=== PATIENT | male | born 1990 | race Caucasian/White ===

== ENCOUNTER 2020-01-27 14:18 | Emergency (ER) | payer OTHER, BC, SELFPAY ==
--- NOTE | ~2020-01-27 | XR_ITS ---
EXAMINATION: XR forearm RT 2V DATE: 01/27/2020 15:20 INDICATION: Right forearm injury and pain. TECHNIQUE: 2 views of right forearm were obtained. COMPARISON: None. FINDINGS: Bone alignment is normal. No fracture. Joint spaces are well maintained. There is an enthes ophyte at lateral humeral epicondyle. There is no elbow joint effusion. IMPRESSION: 1. No fracture. Reviewed, dictated and finalized at location A. IMPRESSION: 1. No fracture.
[2020-01-27 14:21] VITALS: BP 153/103; PULSE 108; RESP 18; TEMP 36.8; O2SAT 100
--- NOTE | 2020-01-27 14:32 | PC.NURSE ---
Patient states that he is unable to move 4th and 5th fingers as result from the scratch on his forearm. On exam, patient forcefully holding fingers out and stiff in a Spok like formation. Once told to relax by this RN patient states I'm just real tense right now. Pt is able to move all extremities once relaxed .
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
[2020-01-27 15:40] VITALS: BP 155/82; PULSE 88; RESP 19; O2SAT 100
== END 2020-01-27 15:41 | disposition home or self-care (01) ==
PROVIDERS: Emergency Provider Emergency Medicine; PCP Physician Assistant
DX: S50.11XA Contusion of right forearm, initial encounter (principal); E66.9 Obesity, unspecified; Z68.42 Body mass index [BMI] 45.0-49.9, adult; W20.8XXA Other cause of strike by thrown, projected or falling object, initial encounter
CPT/HCPCS: 73090; 99283

== ENCOUNTER 2020-12-31 07:40 | Outpatient (CLI) | payer BC, SELFPAY | END 2020-12-31 07:41 | disposition home or self-care (01) | LOC: ANHAUDIO 07:42 | PROVIDERS: PCP Physician Assistant; Visit Provider Nurse Practitioner Family | DX: R42 Dizziness and giddiness (principal); H90.3 Sensorineural hearing loss, bilateral | CPT/HCPCS: 92537; 92540; 92546; 92557; 92567 ==

== ENCOUNTER → 2021-04-15 14:05 | Outpatient (CLI) | payer BC, SELFPAY ==
--- NOTE | ~2021-04-15 | MR_ITS ---
EXAMINATION: MR cervical spine wo con EXAM DATE: 04/15/2021 15:27 INDICATION: Neck pain, cervical radiculopathy. TECHNIQUE: Multi-sequential, multiplanar MR images of the cervical spine were obtained without contra st. Axial T2, axial T2 MERGE sequence. Sagittal T1, T2, T2 fat saturation images also obtained. Th ere is no prior study for comparison. FINDINGS: The vertebral bodies are aligned in the AP dimension. Vertebral body and disc heights are well-maintained. The spinal cord signal intensity and intrinsic morphology is normal. Cervicomedullar y junction is normal in appearance. There are no suspicious marrow signal abnormalities. Paraspinal s oft tissue is unremarkable. Level by level evaluation: C2-C3: Disc does not extend beyond the endplate margin. Uncovertebral joint arthropathy: Mild. Facet joint arthropathy: Mild. Neural foraminal stenosis: No stenosis. Central canal stenosis: No stenosis. C3-C4: Disc does not extend beyond the endplate margin. Uncovertebral joint arthropathy: Mild to moderate right, mild left. Facet joint arthropathy: Mild. Neural foraminal stenosis: Mild to moderate right. Central canal stenosis: No stenosis. C4-C5: Disc does not extend beyond the endplate margin. Uncovertebral joint arthropathy: Mild bilateral. Facet joint arthropathy: Mild bilateral. Neural foraminal stenosis: Mild bilateral. Central canal stenosis: No stenosis. C5-C6: Disc does not extend beyond the endplate margin. Uncovertebral joint arthropathy: Mild bilateral. Facet joint arthropathy: Mild bilateral. Neural foraminal stenosis: Mild left. Central canal stenosis: No stenosis. C6-C7: Disc does not extend beyond the endplate margin. Uncovertebral joint arthropathy: Mild bilateral. Facet joint arthropathy: None. Neural foraminal stenosis: No stenosis. Central canal stenosis: No stenosis. C7-T1: Disc does not extend beyond the endplate margin. Uncovertebral joint arthropathy: Mild bilateral. Facet joint arthropathy: None. Neural foraminal stenosis: No stenosis. Central canal stenosis: No stenosis. IMPRESSION: Mild cervical spondylosis. Reviewed, dictated and finalized at location B. IMPRESSION: Mild cervical spondylosis.
== END ==
PROVIDERS: PCP Physician Assistant; Visit Provider Anesthesiology
DX: M47.22 Other spondylosis with radiculopathy, cervical region (principal)
CPT/HCPCS: 72141

== ENCOUNTER → 2021-04-15 14:07 | Outpatient (CLI) | payer BC, SELFPAY ==
--- NOTE | ~2021-04-15 | MR_ITS ---
EXAMINATION: MR brain/brain stem wo/w con EXAM DATE: 04/15/2021 15:31 INDICATION: Dizziness and giddiness. Vertigo. TECHNIQUE: Magnetic resonance imaging (MRI) of the brain/brain stem obtained without contrast. Sagit hai T1, axial diffusion, gradient echo (T2*), T1, T2, FLAIR sequences obtained. Patient was then inj ected with 20 cc intravenous Multihance contrast. Axial and coronal postcontrast T1 weighted sequence s obtained. Comparison is made to prior examination from 01/09/2012. FINDINGS: There are no areas of restricted diffusion to suggest acute infarction. There is no acute hemorrhage seen on the T2*, a hemosiderin sensitive sequence. No intraparenchymal brain mass. The ve ntricles are normal in size. There are no extra-axial collections. Flow voids are seen in the cereb ral arteries on the T2-weighted sequences consistent with their expected patency. The orbits are unr emarkable. Soft tissue is unremarkable. Small mucous retention cyst in each maxillary sinus. There are no areas of abnormal enhancement on the post contrast images. IMPRESSION: 1. Unremarkable brain MRI examination. Reviewed, dictated and finalized at location B.
[2021-04-15 14:41] LABS: Estimated Glomerular Filt Rate > 60
== END ==
PROVIDERS: PCP Physician Assistant; Visit Provider Physician Assistant
DX: R42 Dizziness and giddiness (principal)
CPT/HCPCS: 70553; A9577

== ENCOUNTER → 2021-09-01 11:46 | Outpatient (CLI) | payer OTHER, SELFPAY ==
--- NOTE | ~2021-09-01 | XR_ITS ---
XR finger 2nd RT min 2V DATE: 09/01/2021 12:24 INDICATION: Second finger injury TECHNIQUE: 4 views COMPARISON: None FINDINGS: No fracture or dislocation, periosteal reaction or bone destruction, radiopaque soft tissue foreign body or subcutaneous emphysema. IMPRESSION: Negative Reviewed, dictated and finalized at location A. DINE OPERATOR IMPRESSION: Negative
--- NOTE | ~2021-09-01 | XR_ITS ---
XR chest 2V DATE: 09/01/2021 12:24 INDICATION: Persistent cough. TECHNIQUE: 2 views COMPARISON: 12/18/2018 2 view chest FINDINGS: Normal heart size. No hilar or mediastinal enlargement. No pulmonary infiltrate or consolid ation, pleural effusion or pulmonary vascular congestion or pneumothorax. Included skeletal structures are unremarkable. IMPRESSION: No active cardiopulmonary disease Reviewed, dictated and finalized at location A. LY CRIB ATTENDANT
== END ==
PROVIDERS: Visit Provider Physician Assistant
DX: R05.3 Chronic cough (principal); S69.91XA Unspecified injury of right wrist, hand and finger(s), initial encounter; X58.XXXA Exposure to other specified factors, initial encounter
CPT/HCPCS: 71046; 73140

== ENCOUNTER → 2021-11-15 17:17 | Outpatient (CLI) | payer OTHER, SELFPAY ==
--- NOTE | ~2021-11-15 | MR_ITS ---
EXAMINATION: MR lumbar spine wo con DATE: 11/15/2021 17:46 INDICATION: Low back pain. TECHNIQUE: Magnetic resonance imaging (MRI) of the lumbar spine was performed without intravenous con trast. Sequences included sagittal T2-weighted FSE, sagittal T2-weighted FS FSE, sagittal T1-weighted FSE, and axial T2-weighted FSE. COMPARISON: None FINDINGS: Bone alignment is normal. There is mild chronic anterior wedging of T11 and T12 vertebral b odies. There is mildly decreased disc height at L4-L5. Epidural lipomatosis is noted. The distal spin al cord signal intensity is normal. The conus medullaris is at L1. The following disc levels are spec ifically discussed: L1-L2: The disc does not extend beyond the endplate margin. There is mild bilateral facet joint osteo arthritis. There is no neural foraminal stenosis. There is no central canal stenosis. L2-L3: The disc is mildly bulging. There is mild bilateral facet joint osteoarthritis. There is mild bilateral neural foraminal stenosis. There is no central canal stenosis. L3-L4: The disc is mildly bulging. There is mild bilateral facet joint osteoarthritis. There is mild bilateral neural foraminal stenosis. There is no central canal stenosis. L4-L5: The disc is bulging with superimposed left central extrusion with mass effect on left L5 nerve root in left lateral recess. There is moderate and severe left facet joint osteoarthritis. There is mild right and moderate left neural foraminal stenosis. There is moderate central canal stenosis. The re is severe stenosis of left lateral recess. L5-S1: There is a central protrusion. There is moderate bilateral facet joint osteoarthritis. There i s no neural foraminal stenosis. There is mild central canal stenosis. IMPRESSION: 1. Moderate lumbar spondylosis. Of note, an extrusion at L4-L5 exerts mass effect on left L5 nerve ro ot. Reviewed, dictated and finalized at location A. IMPRESSION: 1. Moderate lumbar spondylosis. Of note, an extrusion at L4-L5 exerts mass effe ct on left L5 nerve root.
== END ==
PROVIDERS: PCP Physician Assistant; Visit Provider Anesthesiology
DX: M47.26 Other spondylosis with radiculopathy, lumbar region (principal)
CPT/HCPCS: 72148

== ENCOUNTER → 2022-07-01 09:09 | Outpatient (CLI) | payer OTHER, SELFPAY ==
--- NOTE | ~2022-07-01 | MR_ITS ---
MRI of the cervical spine Clinical History: Cervical radiculopathy Technique: Axial T2-weighted and gradient images, and sagittal T1-weighted, T2-weighted, and T2 fat s at images were acquired. Findings: There is no fracture or subluxation of the cervical spine. Vertebral bodies maintain normal height and alignment. No significant bone marrow signal dropout is identified. At C2-C3, there is no disc bulge or herniation. No spinal canal stenosis, cord compression, or defini te neural foraminal narrowing. At C3-C4, there is uncovertebral hypertrophy, resulting in right neural foraminal narrowing. Left jennie ral foramen preserved. No spinal canal stenosis or cord compression. At C4-C5, there is minimal uncovertebral degenerative change. No spinal canal stenosis, cord compress ion, or definite neural foraminal narrowing. At C5-C6, there is minimal uncovertebral degenerative change. There is probable minimal left neural f oraminal narrowing. No spinal canal stenosis or cord compression. At C6-C7, there is no disc bulge or herniation. No spinal canal stenosis, cord compression, or neural foraminal narrowing. No prevertebral soft tissue swelling present. Paravertebral soft tissues are unremarkable. Impression: Minimal degenerative spondylosis, as detailed above. There is probable mild neural foraminal narrowin g at the C3-C4 and C5-C6 levels. Reviewed, dictated and finalized at [facility]. HING AIDE Impression: Minimal degenerative spondylosis, as detailed above. There is probable mild jennie ral foraminal narrowing at the C3-C4 and C5-C6 levels.
--- NOTE | ~2022-07-01 | MR_ITS ---
MRI of the thoracic spine Clinical History: Back pain, radiculopathy Technique: Axial T2-weighted images, and sagittal T1-weighted, T2-weighted, and T2 fat sat images wer e acquired. Findings: There is no fracture or subluxation of the thoracic spine. Vertebral bodies maintain normal height and alignment. No bone marrow signal abnormality identified. At T5-T6, there is a focal left paracentral disc protrusion which mildly compresses the ventral spina l cord at this level. At T7-T8, there is a mild disc bulge which minimally flattens the ventral spina l cord. No other disc bulge or herniation seen. No other areas of spinal canal stenosis, cord compression, or neural foraminal narrowing identified. No epidural mass or collection seen otherwise. Paravertebral soft tissues are unremarkable. Impression: Focal left paracentral disc protrusion at T5-T6 which mildly compresses the ventral spinal cord at th is level. Mild disc bulge at T7-T8, which minimally flattens the ventral cord at this level. Reviewed, dictated and finalized at [facility]. R ADJUSTER Impression: Focal left paracentral disc protrusion at T5-T6 which mildly compresses the brad tral spinal cord at this level. Mild disc bulge at T7-T8, which minimally flattens the ventral cord at this lev el.
== END ==
PROVIDERS: PCP Physician Assistant; Visit Provider Anesthesiology
DX: M54.14 Radiculopathy, thoracic region (principal); M54.12 Radiculopathy, cervical region; M51.24 Other intervertebral disc displacement, thoracic region; M43.02 Spondylolysis, cervical region
CPT/HCPCS: 72141; 72146

== ENCOUNTER 2022-10-25 06:52 | Outpatient (CLI) | payer OTHER, SELFPAY ==
--- NOTE | ~2022-10-25 | MR_ITS ---
EXAMINATION: MR shoulder RT wo con DATE: 10/25/2022 07:30 INDICATION: Unspecified right shoulder injury with one month of pain. TECHNIQUE: Magnetic resonance imaging (MRI) of the right shoulder was performed without intravenous c ontrast. Sequences included axial PD-weighted FS FSE, coronal oblique PD-weighted FS FSE, coronal obl ique T2-weighted FS FSE, coronal oblique fluid sensitive FSE STIR, sagittal PD-weighted FS FSE, and s agittal T1-weighted SE. COMPARISON: None. FINDINGS: Coracoacromial arch: The acromion undersurface is curved in morphology (type II). The coracoacromial ligament is normal. M ild acromioclavicular osteoarthritis. Rotator cuff: Mild supraspinatus and infraspinatus tendinopathy without tear. The the teres minor and subscapularis tendons are normal. Normal rotator cuff muscle bulk and signal. Biceps tendon, glenoid labrum and glenohumeral cartilage: Mild tendinopathy without tear of the intra-articular long head biceps tendon. Small para labral cyst at the peripheral aspect of a small tear at the base of the abdomen-10:00 position of the posterior glenoid labrum. Mild nonuniform partial-thickness cartilage loss with smooth chondral surface along t he posterior margin of the glenoid and inferomedial humeral head. Fluid: Physiologic amount of fluid in the glenohumeral joint and biceps tendon sheath. No loose osteochondr al bodies. Small amount of fluid in the subacromial/subdeltoid bursa consistent with mild bursitis. Bones: Bone alignment is normal. No fracture or pathologic marrow replacing process. IMPRESSION: 1. Mild supraspinatus and infraspinatus tendinopathy without tear. 2. Mild right glenohumeral osteoarthritis with small tear at the posterior glenoid labrum. 3. Mild tendinopathy without tear of the intra-articular long head biceps tendon. 4. Mild subacromial/subdeltoid bursitis. Reviewed, dictated and finalized at location A. IMPRESSION: 1. Mild supraspinatus and infraspinatus tendinopathy without tear. 2. Mild right glenohumeral osteoarthritis with small tear at the posterior ivan oid labrum. 3. Mild tendinopathy without tear of the intra-articular long head biceps tendo n. 4. Mild subacromial/subdeltoid bursitis.
== END 2022-10-25 06:53 ==
LOC: MICIMG 06:53
PROVIDERS: PCP Physician Assistant; Visit Provider Physician Assistant
DX: S49.91XA Unspecified injury of right shoulder and upper arm, initial encounter (principal); X58.XXXA Exposure to other specified factors, initial encounter; M75.51 Bursitis of right shoulder; M19.011 Primary osteoarthritis, right shoulder
CPT/HCPCS: 73221

== ENCOUNTER 2024-05-16 13:51 | Outpatient (CLI) | payer OTHER, SELFPAY ==
--- NOTE | ~2024-05-16 | XR_ITS ---
3 VIEWS LUMBAR SPINE Ordering provider: Lottie Shirley, PAJanet History: . Lumbar radiculopathy . Comparison: None. FINDINGS: VERTEBRAL BODIES: No visible fracture or subluxation. DISK SPACES: Narrowing of the disc T12-L1, L4-L5 and L5-S1. SOFT TISSUES: Normal. IMPRESSION: No acute osseous abnormality lumbar spine. Consider follow up MRI lumbar spine if there is concern for spinal stenosis/neural impingement. Reviewed, dictated and finalized at location A. IMPRESSION: No acute osseous abnormality lumbar spine. Consider follow up MRI lumbar spine if there is concern for spinal stenosis/jennie ral impingement.
== END 2024-05-16 13:52 | disposition home or self-care (01) ==
PROVIDERS: PCP Physician Assistant; Visit Provider Physician Assistant
DX: M54.16 Radiculopathy, lumbar region (principal)
CPT/HCPCS: 72100

== ENCOUNTER 2024-06-20 07:31 | Outpatient (CLI) | payer OTHER, SELFPAY ==
--- NOTE | ~2024-06-20 | MR_ITS ---
EXAMINATION: MR lumbar spine wo con DATE: 06/20/2024 07:53 INDICATION: Lumbar radiculopathy TECHNIQUE: Magnetic resonance imaging (MRI) of the lumbar spine was performed without intravenous con trast. Sequences included sagittal T2-weighted FSE, sagittal T2-weighted FS FSE, sagittal T1-weighted FSE, and axial T2-weighted FSE. COMPARISON: None FINDINGS: Mild S-shaped curvature of the lumbar and lower thoracic spine with 7 degrees mid to lower lumbar lev ocurvature and 7 degrees upper lumbar and lower thoracic dextrocurvature. Sagittal alignment is wilber l. Lumbar body heights are normal. Disc desiccation and mild to moderate disc height loss at L4-L5 wi th mild fibrofatty degenerative endplate changes. Schmorl's nodes along the inferior endplates of T10 and T11. There is chronic mild anterior wedging at T11 and minimal at T12. Remaining disc heights ar e normal. 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 The conus medullaris terminates a t the cephalad aspect of L2. There is normal signal in the caudal spinal cord. Paravertebral soft tis sues are unremarkable. The following disc levels are specifically discussed: T12-L1: The disc does not extend beyond the endplate margin. There is mild bilateral facet joint oste oarthritis. There is no neural foraminal stenosis. There is no central canal stenosis. L1-L2: The disc does not extend beyond the endplate margin. There is mild bilateral facet joint osteo arthritis. There is minimal bilateral neural foraminal stenosis. There is no central canal stenosis. L2-L3: Disc is minimally bulging. There is mild bilateral facet joint osteoarthritis. There is mild l eft neural foraminal stenosis. There is mild central canal stenosis. L3-L4: Disc is minimally bulging. There is mild to moderate bilateral facet joint osteoarthritis. The re is mild bilateral neural foraminal stenosis. There is moderate central canal stenosis. L4-L5: Disc is mildly bulging with superimposed annular fissure and central to left paracentral disc extrusion with disc material extending up to 4 mm caudal to the level of the superior endplate of L5. Associated small endplate osteophyte along the posterior inferior endplate of L4. There is moderate left and mild to moderate right facet joint osteoarthritis. There is moderate left and mild to modera te right neural foraminal stenosis. There is severe central canal stenosis. L5-S1: Disc is mildly bulging. There is moderate left and mild right facet joint osteoarthritis. Ther e is mild left and minimal right neural foraminal stenosis. There is no central canal stenosis. IMPRESSION: 1. Mild lumbar spondylosis superimposed over a congenitally small lumbar central canal most notable f or moderate central canal stenosis at L3-L4 and severe central canal stenosis at L4-L5. Reviewed, dictated and finalized at location A. 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 Mild lumbar spondylosis superimposed over a congenitally small lumbar centra l canal most notable for moderate central canal stenosis at L3-L4 and severe ce ntral canal stenosis at L4-L5.
== END 2024-06-20 07:32 | disposition home or self-care (01) ==
PROVIDERS: PCP Physician Assistant; Visit Provider Physician Assistant
DX: M47.816 Spondylosis without myelopathy or radiculopathy, lumbar region (principal); M48.061 Spinal stenosis, lumbar region without neurogenic claudication
CPT/HCPCS: 72148

== ENCOUNTER 2024-10-25 10:14 | Outpatient (CLI) | payer OTHER, SELFPAY ==
--- NOTE | ~2024-10-25 | XR_ITS ---
AP, oblique, and lateral views of the right fourth finger CLINICAL HISTORY: Injury FINDINGS: No acute fracture or dislocation seen. Joint spaces are intact. Soft tissues are unremarkab le. IMPRESSION: Unremarkable exam. Reviewed, dictated and finalized at [facility]. IMPRESSION: Unremarkable exam.
== END 2024-10-25 10:15 | disposition home or self-care (01) ==
LOC: MICIMG 10:15
PROVIDERS: PCP Physician Assistant; Visit Provider Physician Assistant
DX: S69.91XA Unspecified injury of right wrist, hand and finger(s), initial encounter (principal); X58.XXXA Exposure to other specified factors, initial encounter
CPT/HCPCS: 73140

== ENCOUNTER 2024-11-07 10:00 | Outpatient (CLI) | payer OTHER, SELFPAY ==
--- NOTE | ~2024-11-07 | CT_ITS ---
EXAMINATION: CT abdomen pelvis wo/w con DATE: 11/07/2024 10:52 INDICATION: Lower urinary tract symptoms TECHNIQUE: Computed tomography (CT) of the abdomen and pelvis was performed without and with 100 mL O mnipaque-350 intravenous contrast. Automated exposure control and iterative reconstruction technique were employed. The dose-length product was 2332.31 mGy-cm. COMPARISON: None. FINDINGS: Lower thorax: Unremarkable Liver: Normal. Biliary/Gallbladder: Gallbladder is normal. No bile duct dilation. Pancreas: No mass or duct dilation. Spleen: Normal. Adrenals:No mass. Kidneys: No suspicious mass, obstructing stone, or hydronephrosis. No filling defect after contrast e xcretion, noting the mid and distal right ureter did not fill with contrast in the delayed images whi ch limits evaluation. GI tract: No small or large bowel dilation. Normal appendix. Mesentery/Peritoneum: No ascites, mass, or free air. Retroperitoneum: No mass. Pelvis: Mild bladder wall thickening in a partially distended urinary bladder. The bladder filled declan rly completely with contrast in the delayed images. Normal left ureteral jet. The right ureteral jet was not visualized. Mild stranding surrounding the seminal vesicles. Mild prostate enlargement. Soft Tissues: 1.6 cm superficial soft tissue lesion, possibly dermal, over the right lower quadrant s kin, just to the right of midline (axial noncontrast image 107/136) Bones: No acute osseous finding. IMPRESSION: Mild bladder wall thickening may be secondary to incomplete distention or cystitis. Correlate with ur inalysis. Mild prostatomegaly. Inflammatory stranding surrounding the seminal vesicles, as can be seen with seminal vesiculitis. No urinary tract abnormality otherwise detected, noting that the mid and distal right ureter did not fill with contrast in the right ureteral jet was not seen, probably secondary to scan timing. 1.6 cm cyst or other dermal lesion involving the right lower quadrant skin, correlate clinically. Reviewed, dictated and finalized at location K. IMPRESSION: Mild bladder wall thickening may be secondary to incomplete distention or cysti tis. Correlate with urinalysis. Mild prostatomegaly. Inflammatory stranding surrounding the seminal vesicles, as can be seen with se linn vesiculitis. No urinary tract abnormality otherwise detected, noting that the mid and distal right ureter did not fill with contrast in the right ureteral jet was not seen , probably secondary to scan timing. 1.6 cm cyst or other dermal lesion involving the right lower quadrant skin, cor relate clinically.
[2024-11-07 10:19] LABS: Estimated Glomerular Filt Rate > 60
== END 2024-11-07 10:01 | disposition home or self-care (01) ==
LOC: MICIMG 10:00
PROVIDERS: PCP Physician Assistant; Visit Provider Physician Assistant
DX: R39.9 Unspecified symptoms and signs involving the genitourinary system (principal); N32.89 Other specified disorders of bladder; N40.0 Benign prostatic hyperplasia without lower urinary tract symptoms; L98.8 Other specified disorders of the skin and subcutaneous tissue
CPT/HCPCS: 74178; Q9967

== ENCOUNTER 2025-01-22 15:14 | Outpatient (CLI) | payer OTHER, SELFPAY ==
--- NOTE | ~2025-01-22 | XR_ITS ---
CHEST RADIOGRAPH, PA AND LATERAL CLINICAL HISTORY: Chronic rhinitis . COMPARISON: 09/01/2021 TECHNIQUE: PA and lateral views of the chest. FINDINGS The cardiomediastinal silhouette is unremarkable. The lungs are clear. IMPRESSION: No focal infiltrate or effusion. Reviewed, dictated and finalized at location A.
== END 2025-01-22 15:15 | disposition home or self-care (01) ==
PROVIDERS: PCP Physician Assistant
DX: J31.0 Chronic rhinitis (principal)
CPT/HCPCS: 71046

== ENCOUNTER 2025-02-13 08:46 | Outpatient (CLI) | payer OTHER, SELFPAY ==
--- NOTE | ~2025-02-13 | CT_ITS ---
CT Scan of the Chest without Contrast: Clinical Indication: Shortness of breath Technique: Contiguous sections were acquired throughout the chest without intravenous contrast. Dose reduction technique was used on this scan by utilizing automated exposure control and iterative recon struction technique. The dose-length product (DLP) was 823.40 mGy-cm. Findings: There is no evidence of any significant mediastinal, hilar or axillary lymphadenopathy. The mediastin al soft tissues appear normal. There is no evidence of pleural or pericardial effusion. The lungs are clear. No pulmonary nodules or infiltrates are noted. Images through the upper abdomen reveal no abnormalities. Impression: No significant abnormalities seen. Reviewed, dictated and finalized at location . Impression: No significant abnormalities seen.
--- OUTSIDE RECORDS SUMMARY | 2025-02-13 08:51 | XMS_ITS | Patient Health Record ---
Author Organization [facility] Address [address] [place] [address] RADHA Camacho [address] Care Team Providers Care Animal Behaviourist Name Role Phone TERRELL IGLESIAS Primary Care Provider Stas Grace Unavailable [phone] TIM GARCIA CHARLES Unavailable Unavailable ALLERGIES No Known Allergies REASON FOR REFERRAL No Information MEDICATIONS Medication SIG (Take, Route, Frequency, Duration) Notes Start Date End Date Status Venlafaxine HCl ER 75 MG 1 capsule with food Oral Once a day Active Licart 1.3 % 1 patch as needed Externally Once a day for 15 days 05/24/2022 Active PROBLEMS Problem Type ICD Code Onset Dates Problem Status W/U Status Risk SNOMED Code Notes Problem Pain in right shoulder (M25.511) Active confirmed Pain of right shoulder region (finding) (0214616494) Problem Spondylosis without myelopathy or radiculopathy, lumbar region (M47.816) Active confirmed Lumbosacral spondylosis without myelopathy (74232028) Problem Intervertebral disc disorders with radiculopathy, 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) Active confirmed Thoracic radiculopathy (45595210) Problem Intervertebral disc disorders with radiculopathy, lumbar region (M51.16) Active confirmed Radiculopathy d ue to lumbar intervertebral disc disorder (825563668019898) Problem Other intervertebral disc degeneration, lumbar region (M51.36) Active confirmed Degeneration of lumbar intervertebral disc (63920423) Problem Radiculopathy, cervical region (M54.12) Active confirmed Cervical radiculopathy (12570181) Problem Radiculopathy, thoracic region (M54.14) Active confirmed Thoracic radiculopathy (10120519) Problem Radiculopathy, lumbar region (M54.16) Active confirmed Lumbar radiculopathy (639634863) Problem Radiculopathy, lumbosacral region (M54.17) Active confirmed Lumbosacral radiculopathy (5862815) Problem 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) Active confirmed Spinal stenosis of thoracic region (06174056) Problem Intervertebral disc stenosis of neural canal of lumbar region (M99.53) Active confirmed Spinal stenosis of lumbar region (74117027) Problem Contusion of lower back and pelvis, initial encounter (S30.0XXA) Active confirmed Contusion of lower back (834361218) Problem Spinal stenosis, lumbar region with neurogenic claudication (M48.062) Active confirmed Neurogenic claudication (568122193) Problem Myalgia, unspecified site (M79.10) Active confirmed Muscle pain (74336527) PLAN OF TREATMENT Pending Test Test Name Order Date MRI : Cervical Spine without Contrast (7 0540) 03/02/2021 MRI : Cervical Spine without Contrast (7 0540) 05/24/2022 MRI : Lumbar Spine without contrast (721 48) 08/14/2022 MRI : Lumbar Spine without contrast (721 48) 11/08/2022 MRI : Lumbar Spine without contrast (721 48) 09/13/2021 MRI : Thoracic Spine without Contrast (7 2146) 05/24/2022 XRAY right shoulder 07/19/2020 Insurance Providers Payer Name Payer Address Payer Phone Subscriber Number Group Number Insured Name Patient Relationship to Insured Coverage Start Date Coverage End Date Douglas GAMEZ NARCISA [address] [place] [address] [id number] BECKY WYATT Self - patient is the insured [address] [facility] [address] [address] [place] [address] [phone] [id number] BECKY WYATT Self - patient is the insured MEDICAL (GENERAL) HISTORY Medical History History ICD Code right inguinal hernia gastroesophageal reflux disease (GERD) depression anxiety Possible back injury Surgical History Surgery Date(Month/Year) inguinal hernia repair, right 2005
--- OUTSIDE RECORDS SUMMARY | 2025-02-13 08:51 | XMS_ITS | Data Portability ---
Author Organization [place] [facility] [employer], Main Office Address [address] [place] [address] Care Team Providers Care Event Sales Manager Name Role Phone [facility] OTHER Assessment No assessment recorded. Plan of Treatment Reminders Order Date Submit Date Provider Last Modified By Organization Details Last Modified Time Details Appointments None recorded. Lab None recorded. Referral None recorded. Procedures None recorded. Surgeries None recorded. Imaging None recorded. Medication Orders cyanocobala min (vit B-12) 1,000 mcg/mL injection solution 2023 024 [email or web address] Not available 4 17:42:32 testosteron e cypionate 200 mg/mL intramuscul ar oil 2023 024 [email or web address] Not available 4 17:56:21 cyanocobala min (vit B-12) 1,000 mcg/mL injection solution 2022 023 [email or web address] [facility] [address], [address] [place] [address], [id number], 3 17:07:44 testosteron e cypionate 200 mg/mL intramuscul ar oil 2022 023 [email or web address] [facility] [address], [address] [place] [address], [id number], 3 17:07:44 cyanocobala min (vit B-12) 1,000 mcg/mL injection solution 2022 023 [email or web address] Not available 3 22:14:22 testosteron e cypionate 200 mg/mL intramuscul ar oil 2022 023 [email or web address] Not available 3 22:15:24 cyanocobala min (vit B-12) 1,000 mcg/mL injection solution 2022 023 [email or web address] Not available 3 23:27:24 testosteron e cypionate 200 mg/mL intramuscul ar oil 2022 023 [email or web address] Not available 3 23:28:03 cyanocobala min (vit B-12) 1,000 mcg/mL injection solution 2022 023 [email or web address] [facility] [address], [address] [place] [address], [address], 3 13:16:15 testosteron e cypionate 200 mg/mL intramuscul ar oil 2022 023 [email or web address] [facility] [address], [address] [place] [address], [id number], 3 13:16:15 Patient TargetsNo targets recorded. Patient InstructionsNo instructions recorded. Reason for Referral None Reported. Problems Name Problem SNOMED Code Status Onset Date Resolution Date Notes Provider Name and Address Organization Details Recorded Time Asthma 461337425 Active Not Available [facility] 3 10:48:19 Nail deformity 442122367 Active Not Available [facility] 3 10:48:19 Low back pain 083556244 Active Not Available [facility] 3 10:48:19 Polyuria 52997728 Active Not Available [facility] 3 10:48:19 Right lower quadrant pain 372441714 Active Not Available [facility] 3 10:48:20 Sinusitis 22085532 Active Not Available [facility] 3 10:48:20 Vertigo 143529785 Active Not Available [facility] 3 10:48:20 Obesity 215522919 Active Not Available [facility] 3 10:48:20 Upper respirator y infection 70868165 Active Not Available [facility] 3 10:48:20 Allergic rhinitis 38154251 Active Not Available [facility] 3 10:48:21 Neck pain 87869065 Active Not Available [facility] 3 10:48:21 Anxiety 02937773 Active 2018 Not Available [facility] 3 10:48:20 Essential hypertensi on 75805191 Active 2018 Not Available [facility] 3 10:48:21 Persistent cough 571550613 Active 2021 Not Available [facility] 3 10:48:20 Injury of finger 99715293 Active 2021 Not Available [facility] 3 10:48:20 Acid reflux 949686487 Active 2021 Not Available [facility] 3 10:48:21 Upper abdominal pain 10470823 Active 2021 Not Available [facility] 3 10:48:21 Impaired glucose tolerance 1484717 Active 2021 Not Available [facility] 3 10:48:21 Testostero ne level below reference range 805464901 Active 2021 Not Available [facility] 3 10:48:19 Vitamin B12 deficiency (non anemic) 98659073 Active 2021 Not Available [facility] 3 10:48:21 Injury of finger 84971695 Active 2021 Not Available [facility] 3 10:48:20 Needle stick injury with contaminat ed needle 015497195 Active 2021 Not Available [facility] 3 10:48:20 Male hypogonadi sm 84516965 Active 2021 Not Available [facility] 3 10:48:20 Testicular hypofuncti on 939722015 Active 2021 Not Available [facility] 3 10:48:19 Hypothyroi dism 55406304 Active 2021 Not Available [facility] 3 10:48:20 Weight gain 1185320 Active 2021 Not Available [facility] 3 10:48:21 Cobalamin deficiency 597785056 Active 2022 Ani Oquendo RN null, [place] [employer] [facility] 3 15:48:15 Thoracic disc prolapse with radiculopa thy 663452544 Active 2022 OMID Wilder [address], [address], [place], [address] , [place] [facility] 3 15:37:06 Cervical spondylosi s 866325092 Active 2022 OMID Wilder [address], [address], [place], [address] , [place] [facility] 3 15:37:11 Lumbar spondylosi s 651551836 Active 2022 OMID Wilder [address], [address], [place], [address] , [employer] [facility] 3 15:37:23 Injury of right shoulder 5524898810524 9107 Active 2022 OMID Wilder [address], [address], [place], [address] , [employer] [facility] 3 13:58:07 Acute sinusitis 99657654 Active 2022 OMID Wilder [address], [address], [place], [address] , [place] [facility] 3 17:35:16 Glenoid labrum tear 557627252 Active 2022 OMID Wilder [address], [address], [place], [address] , [employer] [facility] 3 16:07:09 Chronic neck pain 5059929727599 Active 2022 OMID Wilder [address], [address], [place], [address] , [place] [facility] 16:01:07 Problem Notes None recorded. Procedures Surgical History Date Name Laterality Status Provider Name and Address Organization Details Recorded Time Hernia Repair completed Not Available [facility] 09/20/2022 10:43:12 Imaging Results None recorded. Procedure Notes None recorded. Medical Equipment None Reported. Allergies Allergen ID Allergen Name Allergen Category Reaction Reaction Severity Criticality Documentation Date Start Date Code Code System Note Provider Name and Address Organization Details Recorded Time 06445 melatonin medicatio n other Not available Not available 09/20/2022 6711 RxNorm spasm s Not Available [facility] 10:53:00 Medications Name Sig Start Date Stop Date Status Note LastModified by Organization Details LastModified Time cyclobenz aprine 10 mg tablet 12/10 completed as needed Not Available Not Available Not Available neomycin- polymyxin -hydrocor t 3.5 mg/mL-10, 000 unit/mL-1 % ear solution INSTILL 4 DROPS INTO left ear BY OTIC ROUTE 3 TIMES PER DAY active Not Available Not Available No t Available venlafaxi ne ER 37.5 mg capsule,e xtended release 24 hr TAKE 1 CAPSULE BY MOUTH ONCE DAILY 12/10 completed Not Available Not Available Not Available prednison e 10 mg tablet TAKE 4 TABLETS DAILY BY MOUTH IN THE MORNING WITH FOOD ON DAYS 1-3,THEN TAKE 3 TABLETS DAILY ON DAYS 4-5,THEN TAKE 2 TABLETS DAILY ON DAY 6,THEN TAKE 1 TABLET ON DAY 7. (DO NOT TAKE NSAIDS) 06/29 completed Not Available Not Available Not Available venlafaxi ne ER 75 mg capsule,e xtended release 24 hr TAKE 1 CAPSULE BY MOUTH ONCE DAILY active Not Available Not Available No t Available azithromy ekaterina 250 mg tablet TAKE 2 TABLETS BY MOUTH ON DAY 1, AND THEN TAKE 1 TABLET BY MOUTH ONCE A DAY ON DAY 2 THROUGH DAY 5 06/29 completed Not Available Not Available Not Available ibuprofen 800 mg tablet Take 1 tablet 3 times a day by oral route as needed. active Not Available Not Available No t Available lisinopri l 20 mg tablet Take 1 tablet every day by oral route in the morning. 12/10 completed Not Available Not Available Not Available phentermi ne 37.5 mg tablet Take 1 tablet by mouth once daily active Not Available Not Available No t Available sulfameth oxazole 800 mg-trimet hoprim 160 mg tablet TAKE 1 TABLET BY MOUTH EVERY 12 HOURS 12/10 completed Not Available Not Available Not Available omeprazol e 40 mg capsule,d elayed release active Not Available Not Available Not Available amoxicill in 500 mg tablet Take 1 tablet 3 times a day by oral route for 7 days. active Not Available Not Available No t Available citalopra m 20 mg tablet Take 1 tablet every day by oral route. active Not Available Not Available No t Available famotidin e 20 mg tablet Take 1 tablet twice a day by oral route with meals. 01/28 completed Not Available Not Available Not Available Claritin- D 24 Hour 10 mg-240 mg tablet,ex tended release Take 1 tablet every day by oral route. 12/10 completed Not Available Not Available Not Available Effexor 50 mg tablet Take 1 tablet twice a day by oral route. 08/26 completed Not Available Not Available Not Available meclizine 25 mg tablet Take 1 tablet 3 times a day by oral route as needed. active Not Available Not Available No t Available cyanocoba zeinab (vit B-12) 1,000 mcg/mL injection solution Inject 2 mL every month by subcutan eous route. 2023 active [facility] # [id number] 44-00 Not Available Not Available Not Available prednison e 50 mg tablet Take 1 tablet every day by oral route for 5 days. active Not Available Not Available No t Available ibuprofen 200 mg tablet Take 3 tablets as needed by oral route. 04/17 completed Not Available Not Available Not Available Claritin- D 12 Hour 5 mg-120 mg tablet,ex tended release Take 1 tablet every 12 hours by oral route as needed. 12/10 completed Not Available Not Available Not Available testoster one cypionate 200 mg/mL intramusc ular oil Inject 1 mL every 4 weeks by intramus cular route. 2023 active [facility] # [id number] 27-01 *[facility] own from pharmacy Not Available Not Available Not Available cefuroxim e axetil 500 mg tablet TAKE 1 TABLET BY MOUTH EVERY 12 HOURS 12/10 completed Not Available Not Available Not Available fluticaso ne propionat e 50 mcg/actua tion nasal spray,phil pension 2 sprays each nostril qd 12/10 completed Not Available Not Available Not Available sertralin e 50 mg tablet Take 1 tablet every day by oral route at bedtime. active Not Available Not Available No t Available naproxen 500 mg tablet Take 1 tablet twice a day by oral route as needed. 2022 active Not Available Not Available Not Avai lable amoxicill in 875 mg-potass ium clavulana te 125 mg tablet TAKE 1 TABLET BY MOUTH TWICE DAILY 01/26 completed Not Available Not Available Not Available Ventolin HFA 90 mcg/actua tion aerosol inhaler Inhale 2 puffs every 4 hours by inhalati on route. active Not Available Not Available No t Available cannabidi ol (CBD) oral oil daily 12/12 completed Not Available Not Available Not Available Wegovy 0.25 mg/0.5 mL subcutane ous pen injector Inject 0.25 mg every week by subcutan eous route as directed . 01/26 completed Not Available Not Available Not Available Vitals Date Recorded Body height Body temperature Provider N jose and Address Organization Details Last Updated DateTime 07/27/2023 170.18 cm 97.2 [degF] Reva Wang MA [facility] [employer] 07/27/2023 15:25:06 Date Recorded Body height Body temperature Provider N jose and Address Organization Details Last Updated DateTime 03/23/2023 170.18 cm 97.2 [degF] Reva Wang MA [facility] [employer] [facility] 03/23/2023 11:09:44 Date Recorded Body height Provider Name an d Address Organization Details Last Updated DateTime 04/20/2023 170.18 cm Ani Oquendo RN [facility] [employer] [facility] 04/20/2023 14:46:49 Date Recorded Body height Body temperature Provider N jose and Address Organization Details Last Updated DateTime 05/18/2023 170.18 cm 97.5 [degF] Reva Wang MA [facility] [employer] [facility] 05/18/2023 14:46:16 Date Recorded Body height Body temperature Provider N jose and Address Organization Details Last Updated DateTime 06/22/2023 170.18 cm 97.2 [degF] Reva Wang [place] [facility] [place] [employer] 06/22/2023 16:17:10 Social History Question Answer Notes LastModified by Organizat ion Details LastModified Time Tobacco Smoking Status Never Smoker Not Available [facility] 09/20/2022 10:42:12 What Is Your Level Of Caffeine Consumption? Heavy [id number] Information not available 09/20/2022 How Much Tobacco Do You Chew? None MIGRATION.[id number] 035 Information not available 09/20/2022 In The 14 Days Before Symptom Onset, Have You Had Close Contact With A Laboratory-confirm ed COVID-19 While That Case Was Ill? No MIGRATION.[id number] 035 Information not available 09/20/2022 In The 14 Days Before Symptom Onset, Have You Had Close Contact With A Person Who Is Under Investigation For COVID-19 While That Person Was Ill? No MIGRATION.6193905 035 Information not available 09/20/2022 What Type Of Diet Are You Following? REGULAR MIGRATION.2009901 035 Information not available 09/20/2022 Which Illicit Or Recreational Drugs Have You Used? None MIGRATION.[id number] 035 Information not available 09/20/2022 Have There Been Any Changes To Your Family Or Social Situation? No MIGRATION.[id number] 035 Information not available 09/20/2022 Do You Use Insect Repellent Routinely? No MIGRATION.[id number] 035 Information not available 09/20/2022 What Was The Date Of Your Most Recent Tobacco Screening? 11/04/2020 [id number] 035 Information not available 09/20/2022 What Is Your Relationship Status? Single MIGRATION.4661727 035 Information not available 09/20/2022 Do You Use Your Seat Belt Or Car Seat Routinely? Yes MIGRATION.0459084 035 Information not available 09/20/2022 Do You Have Smoke And Carbon Monoxide Detectors In Your Home? Yes MIGRATION.4869377 035 Information not available 09/20/2022 Are You Passively Exposed To Smoke? No MIGRATION.7209637 035 Information not available 09/20/2022 How Much Tobacco Do You Smoke? No MIGRATION.6411233 035 Information not available 09/20/2022 Do You Use Sunscreen Routinely? Yes MIGRATION.8450150 035 Information not available 09/20/2022 Have You Recently Traveled Abroad? No MIGRATION.9015832 035 Information not available 09/20/2022 Do You Have Any Dietary Restrictions? No MIGRATION.3641921 035 Information not available 09/20/2022 Sex: Unknown Functional Status Question Answer Note LastModified by Organizat ion Details LastModified Time Do you use any illicit or recreational drugs? No MIGRATION.534674 3466 Information not available 09/20/2022 Do you or have you ever used any other forms of tobacco or nicotine? No MIGRATION.032883 7632 Information not available 09/20/2022 What is your level of alcohol consumption? Moderate MIGRATION.845327 3061 Information not available 09/20/2022 Do you or have you ever used smokeless tobacco? Never used smokeless tobacco MIGRATION.146664 1363 Information not available 09/20/2022 Are you currently employed? Yes [email or web address] Information not available 09/28/2022 Do you or have you ever used e-cigarettes or vape? Never used electronic cigarettes MIGRATION.019799 8855 Information not available 09/20/2022 What is your exercise level? Occasional MIGRATION.462463 7255 Information not available 09/20/2022 Mental Status None recorded. Family History Relationship Description Onset Age of this Age Resolved Age Notes LastModified by Organization Details LastModified Time Father Hypertensive disorder MIGRATION.[id number] Not available 09/20/2022 10:43:14 Father Hyperlipidem ia MIGRATION.199 [id number] Not available 09/20/2022 10:43:14 Mother Hypertensive disorder MIGRATION.938 [id number] Not available 09/20/2022 10:43:14 Maternal Uncle Malignant neoplasm of liver MIGRATION.251 [id number] Not available 09/20/2022 10:43:14 Maternal Uncle Malignant neoplasm of liver MIGRATION.622 [id number] Not available 09/20/2022 15:14:09 Unspecified Relation Family history of malignant neoplasm grandm a MIGRATION.613 [id number] Not available 09/20/2022 10:43:14 Unspecified Relation Family history of malignant neoplasm grandm a MIGRATION.421 [id number] Not available 09/20/2022 15:14:09 Medical History Condition Response MRSA N SLEEP APNEA N ALLERGIES/HAYFEVER N LUNG DISEASE/DISORDER N INSOMNIA N COPD N RADIATION / CHEMOTHERAPY N HIGH CHOLESTEROL / HYPERLIPIDEMIA N HYPERTHYROIDISM N BLOOD DISEASES N EAR OR HEARING PROBLEMS N HYPOTHYROIDISM N DEPRESSION (INCLUDING POST ) N BACK / NECK PROBLEMS Y HAVE YOU BEEN HOSPITALIZED OR SEEN IN [facility] ER IN THE PAST YEAR ? N STROKE/TIA N ULCERS N OBESITY N HISTORY WITH COMPLICATIONS WITH ANESTHES IA ? N ANEURYSM N USE OF BLOOD THINNERS N NO SIGNIFICANT PAST MEDICAL HISTORY N SKIN PROBLEMS Y DIABETES, TYPE N PARATHYROID DISEASE N ENT N SEASONAL ALLERGIES Y HEARTBURN / REFLUX Y ASTHMA Y HEPATITIS / LIVER DISEASE N SLEEP DISORDER N HEADACHES/MIGRAINES Y SEIZURES/EPILEPSY N CHF N PACEMAKER N DIZZINESS Y HEART DISEASE/HEART PROBLEMS N AIDS/HIV N FRACTURES N HYPERTENSION Y CANCER: SPECIFY N TOURETTE'S N ANXIETY DISORDER Y BLOOD TRANSFUSION N ANESTHESIA COMPLICATIONS N ANEMIA/BLOOD DISORDER N CHRONIC EAR INFECTIONS Y TUBERCULOSIS N Immunizations Vaccine Type Date Status Note Provider Nam e and Address Organization Details Recorded Time COVID-19, mRNA, LNP-S, PF, 30 mcg/0.3 mL dose 1 completed Not Available [facility] 09/20/2022 10:52:47 SARS-COV-2 (COVID-19) vaccine, UNSPECIFIED 1 completed Not Available [facility] 09/20/2022 10:52:47 Influenza, split virus, quadrivalent, PF 1 completed Not Available [facility] 09/20/2022 10:52:48 Tdap 0 completed Not Available [facility] 09/20/2022 10:52:48 Past Encounters Encounter ID Performer Location Encounter Start Date Encounter Closed Date Diagnosis/Indication Diagnosis SNOMED-CT Code Diagnosis ICD10 Code Diagnosis Note [id number] OMID Wilder [facility] [place] [address] [address], [address] [place] [address] 11/04/2020 00:00:00 11/19/2020 18:32:03 [id number] OMID Wilder [facility] [place] [address] [place] [address] 11/26/2020 00:00:00 11/26/2020 08:59:48 [id number] [facility]_ DEFAULT_1 _1 , 12/10/2020 00:00:00 12/10/2020 09:32:58 [id number] OMID Wilder [facility] [place] [address] [place] [address] 12/17/2020 00:00:00 12/17/2020 14:38:01 [id number] OMID Wilder [facility] [place] [address] [place] [address] 2021 00:00:00 2021 17:38:22 [id number] OMID Wilder [facility] [place] [address] [place] [address] 03/11/2021 00:00:00 03/11/2021 18:03:11 [id number] S_[facility] _[facility]HE[facility]_M IGRATION_ DEFAULT_1 _1 , 04/08/2021 00:00:00 04/08/2021 12:46:22 [id number] OMID Wilder [facility] [place] [address] [place] [address] 04/08/2021 00:00:00 04/08/2021 17:29:50 [id number] OMDI Wilder [facility] [place] [address] [place] [address] 05/06/2021 00:00:00 05/22/2021 12:04:58 [id number] OMID Wilder [facility] [place] [address] [place] [address] 06/03/2021 00:00:00 06/03/2021 17:43:01 [id number] OMID Wilder [facility] [place] [address] [place] [address] 07/01/2021 00:00:00 07/01/2021 22:48:24 [id number] OMID Wilder [facility] [place] [address] [place] [address] 07/29/2021 00:00:00 07/29/2021 17:29:56 [id number] OMID Wilder [facility] [place] [address] [place] [address] 08/26/2021 00:00:00 09/19/2021 21:26:26 [id number] OMID Wilder [facility] [place] [address] [place] [address] 09/02/2021 00:00:00 09/02/2021 19:11:37 [id number] OMID Wilder [facility] [place] [address] [place] [address] 09/30/2021 00:00:00 10/02/2021 15:44:38 [id number] OMID Wilder [facility] [place] [address] [place] [address] 10/14/2021 00:00:00 10/15/2021 15:22:39 [id number] Ollie Baca [facility] [place] [address] [place] [address] 10/28/2021 00:00:00 10/28/2021 16:21:17 [id number] Ollie Baca MD [facility] [place] [address] [place] [address] 11/25/2021 00:00:00 12/20/2021 21:36:54 [id number] Josias Ramachandran MD [facility]_[address] [address] 12/05/2021 00:00:00 12/05/2021 15:14:51 [id number] Ollie Baca MD [facility] [place] [address] [place] [address] 12/23/2021 00:00:00 12/23/2021 17:38:43 [id number] Ollie Baca MD [facility] [place] [address] [place] [address] 02/24/2022 00:00:00 03/22/2022 10:26:53 [id number] Ollie Baca MD [facility] [place] [address] [place] [address] 03/24/2022 00:00:00 03/24/2022 16:29:27 [id number] OMID Wilder [facility] [place] [address] [place] [address] 04/21/2022 00:00:00 04/21/2022 16:36:23 [id number] OMID Wilder [facility] [place] [address] [place] [address] 05/19/2022 00:00:00 05/19/2022 17:17:33 [id number] OMID Wilder [facility] [place] [address] [place] [address] 07/14/2022 00:00:00 07/18/2022 16:01:32 [id number] OMID Wilder [facility] [place] [address] [place] [address] 08/25/2022 00:00:00 08/28/2022 16:14:36 [id number] OMID Wilder [facility] [place] [address] [place] [address] 09/22/2022 15:23:33 09/22/2022 15:49:55 Testosterone level below reference range 580614553 R79.89 Cobalamin deficiency 190 239037 E53.8 [id number] OMID Wilder [facility] [place] [address] [place] [address] 09/29/2022 15:02:02 09/29/2022 15:50:21 Thoracic disc prolapse with radiculopathy 771613490 M51.14 refer to new pain management Cervical spondylosis 387 776585 M47.812 hx noted. seeing pain med Lumbar spondylosis 81250 0009 M47.896 hx noted. seeing pain med Body mass index 40+ - severely obese 848013931 Z68.41 start wegovy GLP [id number] OMID Wilder [facility] [place] [address] [place] [address] 11/03/2022 16:20:06 11/03/2022 16:46:02 Testosterone level below reference range 904496978 R79.89 Cobalamin deficiency 190 906937 E53.8 [id number] OMID Wilder [facility] [place] [address] [place] [address] 12/29/2022 15:29:36 12/29/2022 15:55:06 Testosterone level below reference range 290111703 R79.89 Vitamin B1 2 deficiency (non anemic) 28138230 E53.8 [id number] OMID Wilder [facility] [place] [address] [place] [address] 01/26/2023 15:24:50 01/26/2023 16:20:28 Testosterone level below reference range 546061030 R79.89 on supplement injection monthly. labs ordered Vitamin B1 2 deficiency (non anemic) 56610821 E53.8 on supplement al injection. due for labs Adult heal th examination 863705827 Z00.01 well exam completed Anxiety 60900496 F41.9 stable. no acute changes Essential hypertension 97330695 I10 stable. no acute changes. Obesity 912896173 E66.9 noted Impaired g lucose tolerance 8048362 R73.03 due fof A1c lab Lumbar spondylosis 99681 0009 M47.896 hx noted. Glenoid labrum tear 2022 88648 S43.431D refer to Ortho Cervical spondylosis 387 178506 M47.812 hx noted. seeing pain med, refer to new pain med per his request. more local option desired Screening for malignant neoplasm of prostate 714477059 Z12.5 PSA due Long-term drug therapy 649809423 Z79.899 CBC and CMP due Cholesterol screening 27 2462255 Z13.220 fasting lipids due Thyroid di sorder screening [id number] Z13.29 thyroid panel due [id number] OMID Wilder [facility] [place] [address] [place] [address] 02/23/2023 14:00:50 02/23/2023 14:25:05 Male hypogonadism [id number] E29.1 Cobalamin deficiency 190 328177 E53.8 [id number] OMID Wilder [facility] [place] [address] [place] [address] 03/23/2023 10:46:38 03/23/2023 11:14:27 Male hypogonadism [id number] E29.1 Vitamin B1 2 deficiency (non anemic) 13839882 E53.8 on supplement al injection. due for labs [id number] OMID Wilder [facility] [place] [address] [place] [address] 04/20/2023 14:40:49 04/20/2023 14:49:55 Vitamin B12 deficiency (non anemic) 76561536 E53.8 on supplement al injection. due for labs Male hypogonadism 969952 06 E29.1 [id number] OMID Wilder [facility] [place] [address] [place] [address] 05/18/2023 14:28:22 05/18/2023 15:33:29 Vitamin B12 deficiency (non anemic) 10063752 E53.8 on supplement al injection. due for labs Male hypogonadism 516203 06 E29.1 [id number] OMID Wilder [facility] [place] [address] [place] [address] 06/22/2023 16:07:05 06/22/2023 16:23:12 Male hypogonadism 93434235 E29.1 Vitamin B1 2 deficiency (non anemic) 60899345 E53.8 on supplement al injection. due for labs [id number] OMID Wilder [facility] [place] [address] [place] [address] 07/27/2023 15:20:15 07/27/2023 15:46:38 Vitamin B12 deficiency (non anemic) 66552326 E53.8 on supplement al injection. due for labs Male hypogonadism 299012 06 E29.1 Health Concerns Section Related Observation LastModified by Organization Detai ls LastModified Time None Recorded Concern Status LastModified by Organization Details LastModified Time None Recorded Advance Directives Directive None Recorded Payers Insurance Date Sequence Insurance Name Policy Number Policy Parra Covered Member ID Parra Member ID Guarantor Name 08/07/2023 1 [facility] [id number] Prabhu Haney [id number] Prabhu Haney
--- OUTSIDE RECORDS SUMMARY | 2025-02-13 08:51 | XMS_ITS | Data Portability ---
Author Organization [facility] Address [address] [place] [address] Care Team Providers Care Deputy Brand Inspector Name Role Phone ЮЛИЯSHAHRIARWALTERIE Primary Care Provider Unavailab le Assessment No assessment recorded. Plan of Treatment Reminders Order Date Submit Date Provider Last Modified By Organization Details Last Modified Time Details Appointments None recorded. Lab CBC w/ auto diff 2024 025 BALASIDDHARTHA Monroe, [address], [address], [place], [address], 5 09:23:31 CMP, serum or plasma 2024 025 VANCLEVE Fer, [address], [address], [place], [address], 5 09:23:30 vitamin B12 + folate, serum or blood 2024 025 BALASIDDHARTHA Monroe, [address], [address], [place], [address], 5 15:07:33 insulin, serum 2024 025 BALA Fer, [address], [address], [place], [address], 5 15:07:35 HbA1c (hemoglobi n A1c), blood 2024 025 BALA Fer, [address], [address], [place], [address], 5 15:07:34 CBC w/ auto diff 2024 025 [facility], [address], [address], [place], [address], 5 15:07:36 CMP, serum or plasma 2024 025 [facility], [address], [address], [place], [address], 5 15:07:31 testostero ne, free + total, serum 2024 025 [facility], [address], [address], [place], [address], 5 15:07:30 PSA, total, serum or plasma 2024 025 [facility], [address], [address], [place], [address], 5 15:07:38 Referral urologist referral 2024 025 VANCLEVE [facility], [address] [place] [address] [address], [place], [address], 5 13:40:32 neurologic al surgeon referral 2024 025 [email or web address] [facility], [facility] [address], [place], [address], 5 10:47:47 Procedures None recorded. Surgeries None recorded. Imaging CT, urogram 2024 [facility], [address], [address], [place], [address], 12:16:15 Medication Orders mupirocin 2 % topical ointment 2024 [facility], [address] [place] [address], [address], 5 15:46:24 clindamyci n HCl 150 mg capsule 2024 025 [facility], [address] [place] [address], [address], 5 15:46:25 albuterol sulfate HFA 90 mcg/actuat ion aerosol inhaler [address] [facility] [address] [facility], [address] [place] [address], [address], 5 09:26:53 ciprofloxa ekaterina 500 mg tablet 2024 025 [facility], [address] [place] [address], [address], 5 15:10:15 losartan 25 mg tablet 2024 025 [facility], [address] [place] [address], [address], 5 15:32:44 testostero ne cypionate 200 mg/mL intramuscu lar oil 2023 024 [email or web address] Not available 4 16:54:14 cyanocobal cervantes (vit B-12) 1,000 mcg/mL injection solution 2023 024 [email or web address] Not available 5 15:12:13 testostero ne cypionate 200 mg/mL intramuscu lar oil 2023 024 [email or web address] Not available 4 12:25:35 Patient TargetsNo targets recorded. Patient Instructions Encounter Date Encounter Id Patient Instructions Last Modified By Organization Details Last Modified Time 08/15/2024 [id number] A healthy lifestyle: care instructions Not available 08/15/2024 15:32:37 09/05/2024 [id number] A healthy lifestyle: care instructions Not available 09/05/2024 09:27:21 11/27/2024 [id number] A healthy lifestyle: care instructions Not available 12/16/2024 01:12:19 Reason for Referral Neurological Surgeon Referra l for Spinal stenosis of lumbar region Referring Physician: Lottie Shirley, Internal Medicine, Encounter Date: 08/15/2024 Urologist Referral for Disor mikey of ejaculation Referring Physician: Lottie Shirley, Internal Medicine, Encounter Date: 09/05/2024 Results Created Date Observation Date Name Description Value Unit Range Abnormal Flag Note LastModifiedBy Organization Detail LastModifiedTime 08/30/1908/31/2024 MICRO SCOPI C EXAMI NATIO N WBC NONE SEEN /hpf 0-5 Not Available [facility] ([facility]) [address] [place], [address], 08/31/2024 09:06:38 08/30/19 25 08/31/2024 MICRO SCOPI C EXAMI NATIO N RBC 0-2 /hpf 0-2 Not Available [facility] ([facility]) [address] [place], [address], 08/31/2024 09:06:38 08/30/19 25 08/31/2024 MICRO SCOPI C EXAMI NATIO N epithelial cells (non renal) NONE SEEN /hpf 0-10 Not Available [facility] ([facility]) [address] [place], [address], 08/31/2024 09:06:38 08/30/1908/31/2024 MICRO SCOPI C EXAMI NATIO N casts NONE SEEN /lpf nonese en Not Available [facility] ([facility]) [address] [place], [address], 08/31/2024 09:06:38 08/30/19 25 08/31/2024 MICRO SCOPI C EXAMI NATIO N bacteria NONE SEEN nonese en/few Not Available [facility] ([facility]) [address] [facility], [place], [address], 08/31/2024 09:06:38 08/30/1908/31/2024 URINA LYSIS , COMPL ETE specific gravity 1.022 1.005- 1.030 Not Available [facility] ([facility]) [address] [facility], [place], [address], 08/31/2024 09:06:38 08/30/19 25 08/31/2024 URINA LYSIS , COMPL ETE pH 6.5 5.0-7. 5 Not Available [facility] ([facility]) [address] [facility], [place], [address], 08/31/2024 09:06:38 08/30/1908/31/2024 URINA LYSIS , COMPL ETE urine-color YELLOW yellow Not Available [facility] ([facility]) [address] [facility], [place], [address], 08/31/2024 09:06:38 08/30/1908/31/2024 URINA LYSIS , COMPL ETE appearance CLEAR clear Not Available [facility] ([facility]) [address] [facility], [place], [address], 08/31/2024 09:06:38 08/30/1908/31/2024 URINA LYSIS , COMPL ETE WBC esterase NEGATI VE negati ve Not Available [facility] ([facility]) [address] [facility], [place], [address], 08/31/2024 09:06:38 08/30/19 25 08/31/2024 URINA LYSIS , COMPL ETE protein NEGATI VE negati ve/tra ce Not Available [facility] ([facility]) [address] [facility] [place], [address], 08/31/2024 09:06:38 08/30/19 25 08/31/2024 URINA LYSIS , COMPL ETE glucose NEGATI VE negati ve Not Available [facility] ([facility]) [address] [place], [address], 08/31/2024 09:06:38 08/30/19 25 08/31/2024 URINA LYSIS , COMPL ETE ketones NEGATI VE negati ve Not Available [facility] ([facility]) [address] [place], [address], 08/31/2024 09:06:38 08/30/19 25 08/31/2024 URINA LYSIS , COMPL ETE occult blood NEGATI VE negati ve Not Available [facility] ([facility]) [address] [place], [address], 08/31/2024 09:06:38 08/30/19 25 08/31/2024 URINA LYSIS , COMPL ETE bilirubin NEGATI VE negati ve Not Available [facility] ([facility]) [address] [place], [address], 08/31/2024 09:06:38 08/30/19 25 08/31/2024 URINA LYSIS , COMPL ETE urobilinogen ,semi-qn 0.2 mg/dL 0.2-1. 0 Not Available [facility] ([facility]) [address] [place], [address], 08/31/2024 09:06:38 08/30/19 25 08/31/2024 URINA LYSIS , COMPL ETE nitrite, urine NEGATI VE negati ve Not Available [facility] ([facility]) [address] [place], [address], 08/31/2024 09:06:38 08/30/19 25 08/31/2024 URINA LYSIS , COMPL ETE microscopic examination COMMEN T Micro scopi c follo ws if indic ated. Not Available [facility] ([facility]) [address] [place], [address], 08/31/2024 09:06:38 08/30/19 25 08/31/2024 URINA LYSIS , COMPL ETE microscopic examination SEE BELOW: Micro mervat c was indic ated and was perfo rmed. Not Available [facility] ([facility]) [address] [facility], [place], [address], 08/31/2024 09:06:38 08/30/19 25 08/31/2024 TESTO STERO NE,FR EE AND TOTAL testosterone 727 NG/dL 264-91 6 Adult male refer ence inter dany is based on a popul ation of healt hy nonob gris males (BMI <30) betwe en 19 and 39 years old. Shruthi oviedo et.al . JCEM 2017, 102;1 161-1 173. PMID: 66353 103. Not Available [facility] ([facility]) [address] [facility], [place], [address], 09/04/2024 15:07:30 08/30/19 25 09/04/2024 TESTO STERO NE,FR EE AND TOTAL free testosterone (direct) 16.6 pg/mL 8.7-25 .1 Not Available [facility] ([facility]) [address] [place], [address], 09/04/2024 15:07:30 08/30/19 25 08/31/2024 COMP. METAB OLIC PANEL (14) glucose 94 mg/dL 70-99 Not Available [facility] ([facility]) [address] [place], [address], 09/04/2024 15:07:31 08/30/19 25 08/31/2024 COMP. METAB OLIC PANEL (14) BUN 10 mg/dL 6-20 Not Available [facility] ([facility]) [address] [place], [address], 09/04/2024 15:07:31 08/30/19 25 08/31/2024 COMP. METAB OLIC PANEL (14) creatinine 1.27 mg/dL 0.76-1 .27 Not Available [facility] ([facility]) [address] [facility] [place], [address], 09/04/2024 15:07:31 08/30/19 25 08/31/2024 COMP. METAB OLIC PANEL (14) eGFR 77 mL/mi n/1.7 3 >59 Not Available [facility] ([facility]) [address] [facility] [place], [address], 09/04/2024 15:07:31 08/30/19 25 08/31/2024 COMP. METAB OLIC PANEL (14) BUN/creatini ne ratio 8 9-20 below low normal Not Available [facility] ([facility]) [address] [facility] [place], [address], 09/04/2024 15:07:31 08/30/19 25 08/31/2024 COMP. METAB OLIC PANEL (14) sodium 139 mmol/ L 134-14 4 Not Available [facility] ([facility]) [address] [place], [address], 09/04/2024 15:07:31 08/30/19 25 08/31/2024 COMP. METAB OLIC PANEL (14) potassium 4.7 mmol/ L 3.5-5. 2 Not Available [facility] ([facility]) [address] [place], [address], 09/04/2024 15:07:31 08/30/19 25 08/31/2024 COMP. METAB OLIC PANEL (14) chloride 102 mmol/ L 96-106 Not Available [facility] ([facility]) [address] [place], [address], 09/04/2024 15:07:31 08/30/19 25 08/31/2024 COMP. METAB OLIC PANEL (14) carbon dioxide, total 23 mmol/ L 20-29 Not Available [facility] ([facility]) [address] [facility] [place], [address], 09/04/2024 15:07:31 08/30/19 25 08/31/2024 COMP. METAB OLIC PANEL (14) calcium 9.8 mg/dL 8.7-10 .2 Not Available [facility] [address] [facility] [place], [address], 09/04/2024 15:07:31 08/30/19 25 08/31/2024 COMP. METAB OLIC PANEL (14) protein, total 7.3 g/dL 6.0-8. 5 Not Available [facility] ([facility]) [address] [facility] [place], [address], 09/04/2024 15:07:31 08/30/19 25 08/31/2024 COMP. METAB OLIC PANEL (14) albumin 4.6 g/dL 4.1-5. 1 Not Available [facility] ([facility]) [address] [facility] [place], [address], 09/04/2024 15:07:31 08/30/19 25 08/31/2024 COMP. METAB OLIC PANEL (14) globulin, total 2.7 g/dL 1.5-4. 5 Not Available [facility] ([facility]) [address] [facility] [place], [address], 09/04/2024 15:07:31 08/30/19 25 08/31/2024 COMP. METAB OLIC PANEL (14) bilirubin, total 0.6 mg/dL 0.0-1. 2 Not Available [facility] ([facility]) [address] [facility] [place], [address], 09/04/2024 15:07:31 08/30/19 25 08/31/2024 COMP. METAB OLIC PANEL (14) alkaline phosphatase 90 IU/L 44-121 Not Available [facility] ([facility]) [address] [place], [address], 09/04/2024 15:07:31 08/30/19 25 08/31/2024 COMP. METAB OLIC PANEL (14) AST (SGOT) 40 IU/L 0-40 Not Available [facility] ([facility]) [address] [place], [address], 09/04/2024 15:07:31 08/30/19 25 08/31/2024 COMP. METAB OLIC PANEL (14) ALT (SGPT) 43 IU/L 0-44 Not Available [facility] ([facility]) [address] [place], [address], 09/04/2024 15:07:31 08/30/19 25 08/31/2024 VITAM IN B12+F OLATE vitamin B12 1671 pg/mL 232-12 45 above high normal Not Available [facility] ([facility]) [address] [facility], [place], [address], 09/04/2024 15:07:33 08/30/19 25 08/31/2024 VITAM IN B12+F OLATE folate (folic acid), serum 8.1 NG/mL >3.0 A serum folat e larisa ntrat ion of less than 3.1 ng/mL is consi dered to repre sent clini jillian defic iency . Not Available [facility] ([facility]) [address] [place], [address], 09/04/2024 15:07:33 08/30/19 25 08/31/2024 HEMOG LOBIN A1C hemoglobin A1C 5.8 % 4.8-5. 6 above high normal Predi abete s: 5.7 - 6.4 Diabe dionte: >6.4 Glyce riaz contr ol for adult s with diabe dionte: <7.0 Not Available [facility] ([facility]) [address] [place], [address], 09/04/2024 15:07:34 08/30/19 25 08/31/2024 INSUL IN insulin 27.9 uIU/m L 2.6-24 .9 above high normal Not Available [facility] ([facility]) [address] [facility], [place], [address], 09/04/2024 15:07:35 08/30/19 25 08/31/2024 CBC WITH DIFFE RENTI AL/PL ATELE T WBC 7.9 x10e3 /uL 3.4-10 .8 Not Available [facility] ([facility]) [address] [place], [address], 09/04/2024 15:07:36 08/30/19 25 08/31/2024 CBC WITH DIFFE RENTI AL/PL ATELE T RBC 5.72 x10e6 /uL 4.14-5 .80 Not Available [facility] ([facility]) [address] [facility], [place], [address], 09/04/2024 15:07:36 08/30/19 25 08/31/2024 CBC WITH DIFFE RENTI AL/PL ATELE T hemoglobin 15.7 g/dL 13.0-1 7.7 Not Available [facility] ([facility]) [address] [facility], [place], [address], 09/04/2024 15:07:36 08/30/19 25 08/31/2024 CBC WITH DIFFE RENTI AL/PL ATELE T hematocrit 49.0 % 37.5-5 1.0 Not Available [facility] ([facility]) [address] [place], [address], 09/04/2024 15:07:36 08/30/19 25 08/31/2024 CBC WITH DIFFE RENTI AL/PL ATELE T MCV 86 fL 79-97 Not Available [facility] ([facility]) [address] [place], [address], 09/04/2024 15:07:36 08/30/19 25 08/31/2024 CBC WITH DIFFE RENTI AL/PL ATELE T MCH 27.4 pg 26.6-3 3.0 Not Available [facility] ([facility]) [address] [facility], [place], [address], 09/04/2024 15:07:36 08/30/19 25 08/31/2024 CBC WITH DIFFE RENTI AL/PL ATELE T MCHC 32.0 g/dL 31.5-3 5.7 Not Available [facility] ([facility]) [address] [facility], [place], [address], 09/04/2024 15:07:36 08/30/19 25 08/31/2024 CBC WITH DIFFE RENTI AL/PL ATELE T RDW 14.2 % 11.6-1 5.4 Not Available [facility] ([facility]) [address] [facility], [place], [address], 09/04/2024 15:07:36 08/30/19 25 08/31/2024 CBC WITH DIFFE RENTI AL/PL ATELE T platelets 312 x10e3 /uL 150-45 0 Not Available [facility] ([facility]) [address] [facility], [place], [address], 09/04/2024 15:07:36 08/30/19 25 08/31/2024 CBC WITH DIFFE RENTI AL/PL ATELE T neutrophils 56 % notest ab. Not Available [facility] ([facility]) [address] [facility], [place], [address], 09/04/2024 15:07:36 08/30/19 25 08/31/2024 CBC WITH DIFFE RENTI AL/PL ATELE T lymphs 29 % notest ab. Not Available [facility] ([facility]) [address] [place], [address], 09/04/2024 15:07:36 08/30/19 25 08/31/2024 CBC WITH DIFFE RENTI AL/PL ATELE T monocytes 9 % notest ab. Not Available [facility] ([facility]) [address] [place], [address], 09/04/2024 15:07:36 08/30/19 25 08/31/2024 CBC WITH DIFFE RENTI AL/PL ATELE T eos 5 % notest ab. Not Available [facility] ([facility]) [address] [facility], [place], [address], 09/04/2024 15:07:36 08/30/19 25 08/31/2024 CBC WITH DIFFE RENTI AL/PL ATELE T basos 1 % notest ab. Not Available [facility] ([facility]) [address] [facility], [place], [address], 09/04/2024 15:07:36 08/30/19 25 08/31/2024 CBC WITH DIFFE RENTI AL/PL ATELE T neutrophils (absolute) 4.5 x10e3 /uL 1.4-7. 0 Not Available [facility] ([facility]) [address] [facility], [place], [address], 09/04/2024 15:07:36 08/30/19 25 08/31/2024 CBC WITH DIFFE RENTI AL/PL ATELE T lymphs (absolute) 2.3 x10e3 /uL 0.7-3. 1 Not Available [facility] ([facility]) [address] [place], [address], 09/04/2024 15:07:36 08/30/19 25 08/31/2024 CBC WITH DIFFE RENTI AL/PL ATELE T monocytes(ab solute) 0.7 x10e3 /uL 0.1-0. 9 Not Available [facility] ([facility]) [address] [place], [address], 09/04/2024 15:07:36 08/30/19 25 08/31/2024 CBC WITH DIFFE RENTI AL/PL ATELE T eos (absolute) 0.4 x10e3 /uL 0.0-0. 4 Not Available [facility] ([facility]) [address] [place], [address], 09/04/2024 15:07:36 08/30/19 25 08/31/2024 CBC WITH DIFFE RENTI AL/PL ATELE T baso (absolute) 0.1 x10e3 /uL 0.0-0. 2 Not Available [facility] ([facility]) [address] [place], [address], 09/04/2024 15:07:36 08/30/19 25 08/31/2024 CBC WITH DIFFE RENTI AL/PL ATELE T immature granulocytes 0 % notest ab. Not Available [facility] ([facility]) [address] [place], [address], 09/04/2024 15:07:36 08/30/19 25 08/31/2024 CBC WITH DIFFE RENTI AL/PL ATELE T immature grans (abs) 0.0 x10e3 /uL 0.0-0. 1 Not Available [facility] ([facility]) [address] [place], [address], 09/04/2024 15:07:36 08/30/19 25 08/31/2024 PROST ATE-S PECIF IC AG prostate specific Ag 0.4 NG/mL 0.0-4. 0 Asha ECLIA metho dolog y. Accor ding to the Ameri can [employer] g[employer] iatio n, Serum PSA shoul d decre ase and remai n at undet ectab le level s after radic al prost atect jaime. The AUA defin es bioch emica l recur rence as an initi al PSA value 0.2 ng/mL or great er follo wed by a subse quent confi rmato ry PSA value 0.2 ng/mL or great er. Value s obtai milla with diffe rent assay metho ds or kits canno t be used inter frankel gabby . Resul ts canno t be inter prete d as absol [place] evide nce of the prese nce or absen ce of cassie caban . Not Available [facility] ([facility]) [address] [facility], [place], [address], 09/04/2024 15:07:38 11/28/19 25 11/28/2024 COMP. METAB OLIC PANEL (14) glucose 91 mg/dL 70-99 Not Available [facility] ([facility]) [address] [place], [address], 11/28/2024 09:23:30 11/28/19 25 11/28/2024 COMP. METAB OLIC PANEL (14) BUN 15 mg/dL 6-20 Not Available [facility] ([facility]) [address] [facility], [place], [address], 11/28/2024 09:23:30 11/28/19 25 11/28/2024 COMP. METAB OLIC PANEL (14) creatinine 1.10 mg/dL 0.76-1 .27 Not Available [facility] ([facility]) [address] [place], [address], 11/28/2024 09:23:30 11/28/19 25 11/28/2024 COMP. METAB OLIC PANEL (14) eGFR 91 mL/mi n/1.7 3 >59 Not Available [facility] ([facility]) [address] [place], [address], 11/28/2024 09:23:30 11/28/19 25 11/28/2024 COMP. METAB OLIC PANEL (14) BUN/creatini ne ratio 14 9-20 Not Available [facility] ([facility]) [address] [place], [address], 11/28/2024 09:23:30 11/28/19 25 11/28/2024 COMP. METAB OLIC PANEL (14) sodium 138 mmol/ L 134-14 4 Not Available [facility] ([facility]) [address] [facility] [place], [address], 11/28/2024 09:23:30 11/28/19 25 11/28/2024 COMP. METAB OLIC PANEL (14) potassium 4.5 mmol/ L 3.5-5. 2 Not Available [facility] ([facility]) [address] [facility] [place], [address], 11/28/2024 09:23:30 11/28/19 25 11/28/2024 COMP. METAB OLIC PANEL (14) chloride 100 mmol/ L 96-106 Not Available [facility] ([facility]) [address] [facility] [place], [address], 11/28/2024 09:23:30 11/28/19 25 11/28/2024 COMP. METAB OLIC PANEL (14) carbon dioxide, total 23 mmol/ L 20-29 Not Available [facility] ([facility]) [address] [facility] [place], [address], 11/28/2024 09:23:30 11/28/19 25 11/28/2024 COMP. METAB OLIC PANEL (14) calcium 9.5 mg/dL 8.7-10 .2 Not Available [facility] ([facility]) [address] [facility] [place], [address], 11/28/2024 09:23:30 11/28/19 25 11/28/2024 COMP. METAB OLIC PANEL (14) protein, total 7.7 g/dL 6.0-8. 5 Not Available [facility] ([facility]) [address] [facility] [place], [address], 11/28/2024 09:23:30 11/28/19 25 11/28/2024 COMP. METAB OLIC PANEL (14) albumin 4.8 g/dL 4.1-5. 1 Not Available [facility] ([facility]) [address] [facility], [place], [address], 11/28/2024 09:23:30 11/28/19 25 11/28/2024 COMP. METAB OLIC PANEL (14) globulin, total 2.9 g/dL 1.5-4. 5 Not Available [facility] ([facility]) [address] [facility] [place], [address], 11/28/2024 09:23:30 11/28/19 25 11/28/2024 COMP. METAB OLIC PANEL (14) bilirubin, total 0.4 mg/dL 0.0-1. 2 Not Available [facility] ([facility]) [address] [facility] [place], [address], 11/28/2024 09:23:30 11/28/19 25 11/28/2024 COMP. METAB OLIC PANEL (14) alkaline phosphatase 78 IU/L 44-121 Not Available [facility] [address] [facility], [place], [address], 11/28/2024 09:23:30 11/28/19 25 11/28/2024 COMP. METAB OLIC PANEL (14) AST (SGOT) 25 IU/L 0-40 Not Available [facility] ([facility]) [address] [place], [address], 11/28/2024 09:23:30 11/28/19 25 11/28/2024 COMP. METAB OLIC PANEL (14) ALT (SGPT) 39 IU/L 0-44 Not Available [facility] ([facility]) [address] [place], [address], 11/28/2024 09:23:30 11/28/19 25 11/28/2024 CBC WITH DIFFE RENTI AL/PL ATELE T WBC 10.7 x10e3 /uL 3.4-10 .8 Not Available [facility] ([facility]) [address] [facility], [place], [address], 11/28/2024 09:23:31 11/28/1911/28/2024 CBC WITH DIFFE RENTI AL/PL ATELE T RBC 5.73 x10e6 /uL 4.14-5 .80 Not Available [facility] ([facility]) [address] [facility], [place], [address], 11/28/2024 09:23:31 11/28/1911/28/2024 CBC WITH DIFFE RENTI AL/PL ATELE T hemoglobin 16.2 g/dL 13.0-1 7.7 Not Available [facility] ([facility]) [address] [facility], [place], [address], 11/28/2024 09:23:31 11/28/1911/28/2024 CBC WITH DIFFE RENTI AL/PL ATELE T hematocrit 48.3 % 37.5-5 1.0 Not Available [facility] ([facility]) [address] [facility], [place], [address], 11/28/2024 09:23:31 11/28/1911/28/2024 CBC WITH DIFFE RENTI AL/PL ATELE T MCV 84 fL 79-97 Not Available [facility] ([facility]) [address] [place], [address], 11/28/2024 09:23:31 11/28/1911/28/2024 CBC WITH DIFFE RENTI AL/PL ATELE T MCH 28.3 pg 26.6-3 3.0 Not Available [facility] ([facility]) [address] [place], [address], 11/28/2024 09:23:31 11/28/1911/28/2024 CBC WITH DIFFE RENTI AL/PL ATELE T MCHC 33.5 g/dL 31.5-3 5.7 Not Available [facility] ([facility]) [address] [facility], [place], [address], 11/28/2024 09:23:31 11/28/1911/28/2024 CBC WITH DIFFE RENTI AL/PL ATELE T RDW 13.6 % 11.6-1 5.4 Not Available [facility] ([facility]) [address] [facility], [place], [address], 11/28/2024 09:23:31 11/28/1911/28/2024 CBC WITH DIFFE RENTI AL/PL ATELE T platelets 309 x10e3 /uL 150-45 0 Not Available [facility] ([facility]) [address] [facility], [place], [address], 11/28/2024 09:23:31 11/28/19 25 11/28/2024 CBC WITH DIFFE RENTI AL/PL ATELE T neutrophils 70 % notest ab. Not Available [facility] ([facility]) [address] [facility], [place], [address], 11/28/2024 09:23:31 11/28/1911/28/2024 CBC WITH DIFFE RENTI AL/PL ATELE T lymphs 22 % notest ab. Not Available [facility] ([facility]) [address] [facility] [facility], [place], [address], 11/28/2024 09:23:31 11/28/1911/28/2024 CBC WITH DIFFE RENTI AL/PL ATELE T monocytes 7 % notest ab. Not Available [facility] ([facility]) [address] [facility], [place], [address], 11/28/2024 09:23:31 11/28/1911/28/2024 CBC WITH DIFFE RENTI AL/PL ATELE T eos 0 % notest ab. Not Available [facility] ([facility]) [address] [facility], [place], [address], 11/28/2024 09:23:31 11/28/19 25 11/28/2024 CBC WITH DIFFE RENTI AL/PL ATELE T basos 0 % notest ab. Not Available [facility] ([facility]) [address] [facility], [place], [address], 11/28/2024 09:23:31 11/28/19 25 11/28/2024 CBC WITH DIFFE RENTI AL/PL ATELE T neutrophils (absolute) 7.5 x10e3 /uL 1.4-7. 0 above high normal Not Available [facility] ([facility]) [address] [facility], [place], [address], 11/28/2024 09:23:31 11/28/1911/28/2024 CBC WITH DIFFE RENTI AL/PL ATELE T lymphs (absolute) 2.3 x10e3 /uL 0.7-3. 1 Not Available [facility] ([facility]) [address] [facility], [place], [address], 11/28/2024 09:23:31 11/28/19 25 11/28/2024 CBC WITH DIFFE RENTI AL/PL ATELE T monocytes(ab solute) 0.8 x10e3 /uL 0.1-0. 9 Not Available [facility] ([facility]) [address] [facility], [place], [address], 11/28/2024 09:23:31 11/28/1911/28/2024 CBC WITH DIFFE RENTI AL/PL ATELE T eos (absolute) 0.0 x10e3 /uL 0.0-0. 4 Not Available [facility] ([facility]) [address] [place], [address], 11/28/2024 09:23:31 11/28/19 25 11/28/2024 CBC WITH DIFFE RENTI AL/PL ATELE T baso (absolute) 0.0 x10e3 /uL 0.0-0. 2 Not Available [facility] ([facility]) [address] [facility], [place], [address], 11/28/2024 09:23:31 11/28/1911/28/2024 CBC WITH DIFFE RENTI AL/PL ATELE T immature granulocytes 1 % notest ab. Not Available [facility] ([facility]) [address] [facility], [place], [address], 11/28/2024 09:23:31 11/28/19 25 11/28/2024 CBC WITH DIFFE RENTI AL/PL ATELE T immature grans (abs) 0.1 x10e3 /uL 0.0-0. 1 Not Available [facility] ([facility]) [address] [facility], [place], [address], 11/28/2024 09:23:31 06/21/20 24 06/20/2024 MRI, lumba r spine , w/o contr ast No observ ation record ed. [facility] [address], [place], [address], 06/24/2024 13:06:49 10/28/19 25 10/25/2024 XR, finge r(s), 2 or more view No observ ation record ed. [facility] [address], [place], [address], 10/28/2024 16:32:08 11/28/19 25 11/07/2024 CT, urogr am No observ ation record ed. [facility] [address], [place], [address], 11/27/2024 12:16:15 01/25/20 25 01/22/2025 XR, chest , 2 view No observ ation record ed. [email or web address] [address], [place], [address], 01/25/2025 12:42:16 Result Notes None recorded. Problems Name Problem SNOMED Code Status Onset Date Resolution Date Notes Provider Name and Address Organization Details Recorded Time Obesity 046230056 Active 2023 OMID Wilder Attn: Accountin g,[address] [facility], [place], [address], [place] [facility] 4 15:31:15 Positive screening for depression on PHQ-9 (Patient Health Questionnai re 9) [id number] 00 Active 2023 OMID Wilder Attn: Accountin g,[address] [facility], [place], [address], [place] [facility] 5 01:12:07 Vitamin B12 deficiency (non anemic) 12333507 Active 2023 OMID Wilder Attn: Accountin g,[address] [facility], [place], [address], [place] [facility] 4 22:01:17 Male hypogonadis m 91525211 Active 2023 OMID Wilder Attn: Accountin g,[address] [facility], [place], [address], [place] [facility] 4 22:01:29 Benign essential hypertensio n 1171558 Active 2023 OMID Wilder Attn: Accountin g,[address] [facility], [place], [address], [place] [facility] 4 22:01:55 Body mass index 40+ - severely obese 394466688 Active 2023 OMID Wilder Attn: Accountin g,[address] [facility], [place], [address], [place] [facility] 4 22:02:25 Impaired glucose tolerance 2741846 Active 2023 OMID Wilder Attn: Accountin g,[address] [place], [address], [place] [facility] 4 14:20:22 Insulin resistance 283508498 Active 2023 OMID Wilder Attn: Marquisin g,[address] [facility], [place], [address], [place] [facility] 4 14:20:22 Lumbar radiculopat hy 053418720 Active 2023 OMID Wilder Attn: Accountin g,[address] [place], [address], [place] [facility] 4 01:07:15 Cramp in lower limb 039362987 Active 2023 OMID Wilder Attn: Yamilet g,[address] [place], [address], [place] [facility] 4 01:07:21 Long-term drug therapy Active 2023 OMID Wilder Attn: Yamilet miranda,[address] [place], [address], [place] [facility] 4 01:08:42 Spinal stenosis of lumbar region 02168687 Active 2024 OMID Wilder Attn: Yamilet miranda,[address] [place], [address], [place] [facility] 5 08:03:24 Prediabetes 066761424 Active 2024 OMID Wilder Attn: Yamilet miranda,[address] [place], [address], [place] [facility] 5 08:05:11 Obese class III 769158240 Active 2024 OMID Wilder Attn: Yamilet miranda,[address] [place], [address], [place] [facility] 5 01:12:08 Eruption 074073042 Active 2024 OMID Wilder Attn: Yamilet g,[address] [place], [address], [place] [facility] 5 01:12:10 Problem Notes None recorded. Procedures Surgical History Date Name Laterality Status Provider Name and Address Organization Details Recorded Time Hernia Repair completed Jeannie campbell MD Attn: Accounting,[address] , [place], [address], [facility] 09/08/2016 14:55:50 insertion of temporary dental filling in tooth completed Ant Dinh MA [facility] 03/31/2024 14:09:12 Imaging Results None recorded. Procedure Notes None recorded. Medical Equipment None Reported. Allergies Allergen ID Allergen Name Allergen Category Reaction Reaction Severity Criticality Documentation Date Start Date Code Code System Note Provider Name and Address Organization Details Recorded Time 919500 melatonin medicatio n Not available Not available Not available 02/08/2024 6711 RxNorm RIKKI Herrera, [facility] 4 15:01:13 701457 wheat gluten extract food Not available Not available Not available 05/09/2024 43823 81 RxNorm RIKKI Herrera, [facility] 4 15:05:58 Medications Name Sig Start Date Stop Date Status Note LastModified by Organization Details LastModified Time cyclobenzap rine 10 mg tablet 09/08 completed Not Available Not Available Not Available terbinafine HCl 1 % topical cream APPLY TO THE AFFECTED AND SURROUNDI NG AREAS OF SKIN BY TOPICAL ROUTE BID for one week. 07/17 completed Not Available Not Available Not Available doxycycline hyclate 100 mg capsule TAKE 1 CAPSULE BY MOUTH TWICE DAILY FOR 10 DAYS 11/27 completed Not Available Not Available Not Available ketoconazol e 2 % shampoo USE SHAMPOO ON AFFECTED AREA(S) TWICE WEEKLY FOR 4-6 MONTHS, LEAVE ON FOR 5 MINUTES BEFORE RINSING active Not Available Not Available No t Available ibuprofen 800 mg tablet 09/08 completed Not Available Not Available Not Available fluconazole 150 mg tablet TAKE 1 TABLET BY MOUTH ONCE DAILY FOR 7 DAYS active Not Available Not Available No t Available clindamycin HCl 150 mg capsule TAKE 1 CAPSULE BY MOUTH EVERY 6 HOURS active Not Available Not Available No t Available phentermine 37.5 mg tablet TAKE 1 TABLET BY MOUTH ONCE DAILY 11/27 completed Not Available Not Available Not Available ciprofloxac in 500 mg tablet TAKE 1 TABLET BY MOUTH EVERY 12 HOURS FOR 10 DAYS 11/27 completed Not Available Not Available Not Available sulfamethox azole 800 mg-trimetho prim 160 mg tablet 08/15 completed Not Available Not Available Not Available Tessalon Perles 100 mg capsule Take 1 capsule 3 times a day by oral route as needed for 7 days. 07/17 completed Not Available Not Available Not Available amoxicillin 875 mg tablet TAKE 1 TABLET BY MOUTH EVERY 12 HOURS 03/31 completed Not Available Not Available Not Available meclizine 25 mg tablet 09/08 completed Not Available Not Available Not Available cyanocobala min (vit B-12) 1,000 mcg/mL injection solution INJECT 2 ML SUB-Q ONCE EVERY MONTH active Not Available Not Available No t Available losartan 25 mg tablet TAKE 1 TABLET BY MOUTH ONCE DAILY IN THE MORNING active Not Available Not Available No t Available BD Luer-David Syringe 3 mL 25 gauge x 1 USE DIRECTED TWICE MONTHLY active Not Available Not Available No t Available Claritin-D 12 Hour 5 mg-120 mg tablet,exte nded release 09/08 completed Not Available Not Available Not Available mupirocin 2 % topical ointment APPLY A SMALL AMOUNT TO EACH NOSTRIL THREE TIMES DAILY FOR 5 DAYS active Not Available Not Available No t Available ergocalcife rol (vitamin D2) 1,250 mcg (50,000 unit) capsule TAKE 1 CAPSULE BY MOUTH ONCE A WEEK active Not Available Not Available No t Available testosteron e cypionate 200 mg/mL intramuscul ar oil ADMINISTE R 1 ML IN THE MUSCLE EVERY 2 WEEKS active Not Available Not Available No t Available methylpredn isolone 4 mg tablets in a dose pack TAKE DIRECTED active Not Available Not Available No t Available albuterol sulfate HFA 90 mcg/actuati on aerosol inhaler INHALE 2 PUFFS BY MOUTH EVERY 4 HOURS NEEDED active Not Available Not Available No t Available cefdinir 300 mg capsule TAKE 1 CAPSULE BY MOUTH TWICE DAILY FOR 5 DAYS 02/08 completed Not Available Not Available Not Available fluticasone propionate 50 mcg/actuati on nasal spray,suspe nsion 09/08 completed Not Available Not Available Not Available metformin ER 500 mg tablet,exte nded release 24 hr TAKE 1 TABLET BY MOUTH ONCE DAILY AT DINNER 11/03 /2024 completed Not Available Not Available Not Available doxycycline hyclate 100 mg tablet Take by oral route for 5 days. 08/15 completed Not Available Not Available Not Available loratadine 10 mg tablet Take 1 tablet every day by oral route for 30 days. 07/17 completed Not Available Not Available Not Available naproxen 500 mg tablet TAKE 1 TABLET BY MOUTH TWICE DAILY WITH FOOD 11/27 completed Not Available Not Available Not Available amoxicillin 500 mg-potassiu m clavulanate 125 mg tablet TAKE 1 TABLET BY MOUTH TWICE DAILY FOR 10 DAYS active Not Available Not Available No t Available tadalafil 5 mg tablet TAKE 1 TABLET BY MOUTH ONCE DAILY active Not Available Not Available No t Available testosteron e 09/20 completed Not Available Not Available Not Available ibuprofen 03/31 completed Not Available Not Available Not Available Mucinex 07/17 completed Not Available Not Available Not Available Wegovy 0.25 mg/0.5 mL subcutaneou s pen injector Inject 0.25 mg every week by subcutane ous route. 03/31 completed Not Available Not Available Not Available Vitals Date Recorded Systolic And Diastolic Systolic And Diastolic Provider Name and Address Organization Details Last Updated DateTime 08/15/2024 140/88 mm[Hg] 140/88 mm[Hg] OMID Wilder Attn: Accounting, [place], [address], [facility] 08/15/2024 15:30:49 Date Recorded Body height Body mass index (BMI) Body weight Respiratory rate Oxygen saturation Oxygen saturation in Arterial blood by Pulse oximetry Heart rate Systolic And Diastolic Provider Name and Address Organization Details Last Updated DateTime 170.18 cm 45.7 kg/m2 493885. 97 g 20 /min 98 % 98 % 100 /min 150/88 mm[Hg] Ant Dinh MA [facility] 15:13:57 Date Recorded Systolic And Diastolic Provider Name and Address Organization Details Last Updated DateTime 09/05/2024 124/80 mm[Hg] OMID Wilder Attn: Accounting,[address] [place], [address], [place] [facility] 09/05/2024 09:22:19 Date Recorded Body height Body mass index (BMI) Body weight Respiratory rate Oxygen saturation Oxygen saturation in Arterial blood by Pulse oximetry Heart rate Systolic And Diastolic Provider Name and Address Organization Details Last Updated DateTime 5 170.18 cm 45.7 kg/m2 186954. 97 g 20 /min 98 % 98 % 113 /min 148/82 mm[Hg] Ant Dinh MA [facility] 5 08:59:24 Date Recorded Body height Body mass index (BMI) Body weight Respiratory rate Oxygen saturation Oxygen saturation in Arterial blood by Pulse oximetry Heart rate Systolic And Diastolic Provider Name and Address Organization Details Last Updated DateTime 5 170.18 cm 45.4 kg/m2 878168. 79 g 20 /min 100 % 100 % 105 /min 158/90 mm[Hg] Ant Dinh MA [facility] 15:11:11 Social History Question Answer Notes LastModified by Organizat ion Details LastModified Time Tobacco Smoking Status Never Smoker Charissa Kohler MA null, [facility] 09/08/2016 14:45:41 Do You Have An Advance Directive? No Information not available 09/05/2024 Are You Blind Or Do You Have Difficulty Seeing? No Glasses Information not available 02/08/2024 What Is Your Level Of Caffeine Consumption? Moderate Sweet Tea Information not available 02/08/2024 In The 14 Days Before Symptom Onset, Have You Had Close Contact With A Laboratory-confir med COVID-19 While That Case Was Ill? No Information not available 02/08/2024 In The 14 Days Before Symptom Onset, Have You Had Close Contact With A Person Who Is Under Investigation For COVID-19 While That Person Was Ill? No Information not available 02/08/2024 Have You Been To An Area Known To Be High Risk For COVID-19? No Information not available 02/08/2024 Are You Deaf Or Do You Have Serious Difficulty Hearing? No Information not available 02/08/2024 What Type Of Diet Are You Following? REGULAR Information not available 02/08/2024 Are There Any Guns Present In Your Home? No Information not available 02/08/2024 What Was The Date Of Your Most Recent Tobacco Screening? 11/27/2024 Information not available 11/27/2024 Do You Use Your Seat Belt Or Car Seat Routinely? Yes Information not available 02/08/2024 Do You Have Smoke And Carbon Monoxide Detectors In Your Home? Yes Information not available 02/08/2024 How Much Tobacco Do You Smoke? No [email or web address] Information not available 09/08/2016 Do You Use Sunscreen Routinely? Yes Information not available 02/08/2024 Has Tobacco Cessation Counseling Been Provided? No Information not available 02/08/2024 How Many Years Have You Smoked Tobacco? 0 [email or web address] Information not available 10/20/2016 Sex: Male Functional Status Question Answer Note LastModified by Organizat ion Details LastModified Time Do you use any illicit or recreational drugs? No Information not available 02/08/2024 Do you or have you ever used any other forms of tobacco or nicotine? No Information not available 05/09/2024 What is your level of alcohol consumption? Occasional Information not available 02/08/2024 Are you currently employed? Yes Information not available 09/05/2024 Are you able to care for yourself independently? Yes Information not available 02/08/2024 What is your exercise level? None Information not available 02/08/2024 Mental Status Question Answer Note LastModified by Organization D etails LastModified Time Do you feel stressed (tense, restless, nervous, or anxious, or unable to sleep at night)? [id number] Information not available 09/05/2024 Family History Relationship Description Onset Age of this Age Resolved Age Notes LastModified by Organization Details LastModified Time Father Harmful pattern of use of alcohol [email or web address] Not available 2016 14:44:51 Father Asthma [email or web address] Not available 14:45:04 Father Hypertensive disorder [email or web address] Not available 2016 14:45:18 Sister Asthma [email or web address] Not available 14:45:04 Sister Depressive disorder [email or web address] Not available 2023 15:10:36 Mother Hypertensive disorder [email or web address] Not available 2016 14:45:18 Mother Migraine [email or web address] Not available 0 09/08/2016 14:45:36 Mother Osteoporosis [email or web address] Not avai lable 02/08/2024 15:10:08 Mother Depressive disorder [email or web address] Not available 2023 15:10:36 Medical History Condition Response High Blood Pressure Y Depression Y Anxiety Disorder Y Muscle, Joint, or Bone Problems Y Acid Reflux (GERD) Y Asthma Y Allergies Y Headaches Y Immunizations Vaccine Type Date Status Note Provider Nam e and Address Organization Details Recorded Time Influenza, split virus, quadrivalent, preservative 7 completed Not Available [facility] 08[facility]09/[facility] 02:45:29 MMR 4 completed Ant Dinh [place], [place] [facility] 09/05/2024 08:57:49 MMR 7 completed [place] Din[place] [facility] 09/05/2024 08:57:49 COVID-19, mRNA, LNP-S, PF, 30 mcg/0.3 mL dose 1 completed [place] Din[place] [facility] 09/05/2024 08:57:49 COVID-19, mRNA, LNP-S, PF, 30 mcg/0.3 mL dose 1 completed [place] Din[place] [facility] 09/05/2024 08:57:49 Tdap 7 completed [place] Din[place] [facility] 09/05/2024 08:57:49 OPV, trivalent 4 completed [place] Din[place] [facility] 09/05/2024 08:57:49 OPV, trivalent 7 [place]I [place] [facility] 09/05/2024 08:57:49 OPV, trivalent 2 completed [place] Din[place] [facility] 09/05/2024 08:57:49 OPV, trivalent 2 completed [place] Din[place] [facility] 09/05/2024 08:57:49 Hep B, adolescent or pediatric 7 completed [place] Din[place] [facility] 09/05/2024 08:57:49 Hep B, adolescent or pediatric 7 completed [place] Din[place] [facility] 09/05/2024 08:57:49 Hep B, adolescent or pediatric 7 completed [place] Din[place] [facility] 09/05/2024 08:57:49 Hib (PRP-OMP) 3 completed [place] [facility] 09/05/2024 08:57:49 Hib (PRP-OMP) 4 completed [place] Din[place] [facility] 09/05/2024 08:57:49 Hib (PRP-OMP) 2 completed [place] Din[place] [facility] 09/05/2024 08:57:50 Hib (PRP-OMP) 2 completed [place] [facility] 09/05/2024 08:57:50 DTaP 3 completed [place] [facility] 09/05/2024 08:57:50 DTaP 4 completed [place] [facility] 09/05/2024 08:57:50 DTaP 7 completed [place] [facility] 09/05/2024 08:57:50 DTaP 2 completed [place] Din[place] [facility] 09/05/2024 08:57:50 DTaP 2 completed [place] Din[place] [facility] 09/05/2024 08:57:50 Tdap 7 completed Not Available [facility] 08/09/2019 02:50:28 Past Encounters Encounter ID Performer Location Encounter Start Date Encounter Closed Date Diagnosis/Indication Diagnosis SNOMED-CT Code Diagnosis ICD10 Code Diagnosis Note [id number] Jeannie Rivera MD [facility] (Adult [facility] [address] [place] [phone] 09/08/2016 14:33:31 09/08/2016 15:30:14 Tinea cruris 574094109 B35.6 Failure of Lotrimin ultra General ex amination of patient 588123960 Z00.01 Influenza vaccine needed 7772423196 106 Z23 Low back pain 217713132 M54.5 An MRI was done and he received an injection and PT which may not be covered. Overweight 966081817 E66 .3 Acute uppe r respiratory infection 60151816 J06.9 He has had a sore throat runny nose and congestion for a week. There is no fever, myalgia, nausea, vomiting or diarrhea. His rapid strep was negative, this is most likely viral. 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 [id number] MD Suki Freire (Adult Med) [address] [place] [phone] 07/17/2017 15:51:34 07/17/2017 17:13:34 Active or passive immunization 420048844 Z23 Anterior t ibial stress syndrome 966084169 S86.892A Pain in both feet 231776 1899 0845597 M79.671 M79.672 Immunization refused 275 886930 Z28.20 Bilateral knee pain 1187 568979 0011504 M25.561 Diabetes m ellitus screening 528250126 Z13.1 [id number] Ollie Baca MD [facility] [place] [address] [place] [address] 02/08/2024 14:40:28 02/08/2024 15:37:55 Body mass index 40+ - severely obese 772877551 Z68.42 BMI is 47.9. Fasting insulin and thyroid labs were ordered. If insurance will authorize, patient would like to start wegovy injectable therapy. no personal or family hx of Medullary thyroid cancer or MEN conditions . Adult heal th examination 711098829 Z00.01 Annual wellness exam completed Benign ess ential hypertension 5688360 I10 146/82 on blood pressure today. This is just above goal range. Weight loss will help bring his blood pressure down as it has in the past. I encouraged the patient to really focus in on healthy diet modificati ons and get some exercise in 2 to 3 times a week. Male hypogonadism 631692 06 E29.1 Restart testostero ne cypionate 200 mg 1 mL every 2 weeks. Also due for updated testostero ne labs and PSA Vitamin B1 2 deficiency (non anemic) 70445847 E53.8 Restart B12 injections at 2 cc monthly recheck vitamin B12 and folate labs Acute left otitis media 953472055 H66.92 Prescripti on for Amoxil 875 mg twice daily x7 days is given for acute left otitis media Cholesterol screening 27 4301097 Z13.220 Fasting lipid panel is due Diabetes m ellitus screening 675968159 Z13.1 Annual A1c screening is due Long-term drug therapy 342529441 Z79.899 CBC and CMP are due Obesity 657298966 E66.8 discussed healthy diet, exercise, controllin g carbohydra dionte and added sugars in the diet Positive s creening for depression on PHQ-9 (Patient Health Questionnaire 9) 3293003590 43634 Z13.31 Patient scored a 14 on testing today. He does not express any desire to be on any medication management for any mood symptoms. Many of his positive scoring is related to fatigue [id number] Ollie Baca MD [facility] [place] [address] [place] [address] 02/25/2024 16:13:32 02/26/2024 12:49:05 Male hypogonadism 61022670 E29.1 Restart testostero ne cypionate 200 mg 1 mL every 2 weeks. Also due for updated testostero ne labs and PSA Vitamin B1 2 deficiency (non anemic) 43876152 E53.8 Restart B12 injections at 2 cc monthly recheck vitamin B12 and folate labs [id number] Ollie Baca MD [facility] [place] [address] [place] [address] 03/14/2024 15:12:28 03/14/2024 15:59:13 Male hypogonadism 80187772 E29.1 Restart testostero ne cypionate 200 mg 1 mL every 2 weeks. Also due for updated testostero ne labs and PSA [id number] Ollie Baca MD [facility] [place] [address] [place] [address] 03/28/2024 14:36:02 03/28/2024 15:59:19 Male hypogonadism 66815399 E29.1 Restart testostero ne cypionate 200 mg 1 mL every 2 weeks. Also due for updated testostero ne labs and PSA Vitamin B1 2 deficiency (non anemic) 76820132 E53.8 Restart B12 injections at 2 cc monthly recheck vitamin B12 and folate labs [id number] Ollie Baca MD [facility] [place] [address] [place] [address] 03/31/2024 14:01:38 03/31/2024 15:00:33 Insulin resistance 154906239 E88.819 Fasting insulin is 47.1 and the addition of metformin therapy will help to target this Impaired g lucose tolerance 9977204 R73.03 Start metformin ER 500 mg daily with dinner to treat his impaired glucose tolerance with an A1c of 6% Body mass index 40+ - severely obese 069011533 Z68.42 Refill on phentermin e short course to help with weight loss jump start Obesity 555781698 E66.8 discussed healthy diet, exercise, controllin g carbohydra dionte and added sugars in the diet Benign ess ential hypertension 0005906 I10 in order to lower BP to be appropriat e for phentermin e start, we will add losartan 25mg daily. keep Oct appt. Cramp in lower limb 6777 70780 R25.2 Stay hydrated it may try some over-the-c ounter magnesium supplement Lumbar radiculopathy 128 082605 M54.16 Check updated x-ray of the lumbosacra l spine with plans to proceed with an MRI of the lumbar spine without contrast so that new pain management will accept patient Male hypogonadism 585988 06 E29.1 Patient is back on testostero ne monthly injections Vitamin B1 2 deficiency (non anemic) 87575973 E53.8 Patient is back on monthly B12 injections and having some improvemen t Long-term drug therapy [id number] Z79.982 [id number] Ollie Baca MD [facility] [employer] [facility] [place] [address] [place] [address] 04/11/2024 14:54:53 04/14/2024 10:59:43 Male hypogonadism 37328483 E29.1 Restart testostero ne cypionate 200 mg 1 mL every 2 weeks. Also due for updated testostero ne labs and PSA [id number] Ollie Baca MD [facility] [employer] [facility] [place] [address] [place] [address] 04/25/2024 14:47:55 05/01/2024 10:15:35 Male hypogonadism 61940805 E29.1 Restart testostero ne cypionate 200 mg 1 mL every 2 weeks. Also due for updated testostero ne labs and PSA Vitamin B1 2 deficiency (non anemic) 19804083 E53.8 Patient is back on monthly B12 injections and having some improvemen t [id number] Ollie Baca MD [facility] [employer] [facility] [place] [address] [place] [address] 05/09/2024 14:42:46 05/12/2024 15:09:17 Insulin resistance 821331671 E88.819 Patient was unable to tolerate metformin therapy due to side effects. Impaired g lucose tolerance 3138682 R73.03 History noted patient will have to treat with weight loss and lower carbohydra te low sugar lifestyle as he was intolerant to metformin Benign ess ential hypertension 7264676 I10 Blood pressure is 138/88 today. He is on losartan 25 mg daily and will need to continue. Encouragin g exercise and weight loss to further treat blood pressure Body mass index 40+ - severely obese 723619973 Z68.42 Refill on phentermin e short course to help with weight loss jump start Obesity 111213940 E66.9 discussed healthy diet, exercise, controllin g carbohydra dionte and added sugars in the diet Male hypogonadism 528980 06 E29.1 Patient is back on testostero ne monthly injections refill on testostero ne given Vitamin B1 2 deficiency (non anemic) 60947587 E53.8 Patient is back on monthly B12 injections and having some improvemen t Long-term drug therapy 584034370 Z79.899 Lower urin jacob tract symptoms 221232509 R39.9 Check urine with culture with increased urinary frequency reported [id number] Ollie Baca MD [facility] [place] [address] [place] [address] 05/23/2024 14:43:46 05/23/2024 16:20:02 Cobalamin deficiency 374036427 E53.8 Male hypogonadism 031210 06 E29.1 Patient is back on testostero ne monthly injections [id number] Ollie Baca MD [facility] [place] [address] [place] [address] 06/06/2024 14:54:53 06/10/2024 16:48:18 Male hypogonadism 61344833 E29.1 Patient is back on testostero ne monthly injections [id number] Ollie Baca MD [facility] [place] [address] [place] [address] 06/20/2024 09:06:04 06/20/2024 09:50:53 Hypogonadism 61331692 E29.1 Vitamin B1 2 deficiency (non anemic) 52681419 E53.8 [id number] Ollie Baca MD [facility] [place] [address] [place] [address] 07/04/2024 15:31:38 07/04/2024 16:19:05 Male hypogonadism 36895963 E29.1 Patient is back on testostero ne monthly injections [id number] Ollie Baca MD [facility] [place] [address] [place] [address] 08/15/2024 15:03:04 08/18/2024 15:16:13 Spinal stenosis of lumbar region 96758506 M48.061 Patient has known spinal stenosis of the lumbar region confirmed via MRI. We are referring him to local neurosurge ry group that has an Benign ess ential hypertension 8619392 I10 Elevated today on exam but he has not had his losartan dosing. Refill medication given Body mass index 40+ - severely obese 725333335 Z68.42 BMI is 45.7. Male hypogonadism 387602 06 E29.1 Continue testostero ne cypionate 200 mg 1 mL every 2 weeks. Also due for updated testostero ne labs and PSA Vitamin B1 2 deficiency (non anemic) 03521832 E53.8 B12 injections at 2 cc monthly recheck vitamin B12 and folate labs Long-term drug therapy 417965340 Z79.899 CBC and CMP are due Obesity 592161556 E66.9 discussed healthy diet, exercise, controllin g carbohydra dionte and added sugars in the diet Prediabetes 592866389 R7 3.03 6% A1c on labs fasting insulin and A1c are due [id number] Ollie Baca MD [facility] [place] [address] [place] [address] 09/05/2024 08:52:05 09/05/2024 09:23:09 Positive screening for depression on PHQ-9 (Patient Health Questionnaire 9) 0704784286 04663 Z13.31 Patient scored a 12 on testing today. He does not express any desire to be on any medication management for any mood symptoms. Many of his positive scoring is related to fatigue Paresthesi a of saddle area 6039528696 R20.2 Tingling noted in the saddle region? 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
== END 2025-02-13 08:47 | disposition home or self-care (01) ==
PROVIDERS: PCP Physician Assistant; Visit Provider Physician Assistant
DX: R06.02 Shortness of breath (principal); R06.2 Wheezing; Z77.120 Contact with and (suspected) exposure to mold (toxic); J32.9 Chronic sinusitis, unspecified
CPT/HCPCS: 71250

== ENCOUNTER 2025-02-20 09:03 | Outpatient (CLI) | payer OTHER, SELFPAY ==
--- NOTE | ~2025-02-20 | CT_ITS ---
EXAMINATION: CT sinus wo con DATE: 02/20/2025 09:20 INDICATION: Chronic sinusitis TECHNIQUE: Computed tomography (CT) of the paranasal sinuses was performed without intravenous contra st. The dose-length product was 269.39 mGy-cm. Automated exposure control and iterative reconstructio n technique were employed. COMPARISON: None FINDINGS: There is mucosal thickening of the maxillary sinuses with polypoid soft tissue in the antru m, likely mucus retention cysts. Small left mastoid effusion. No mucoperiosteal reaction. Rightward n ajit septal deviation. Ostiomeatal units are patent. Rightward nasal septal deviation. IMPRESSION: 1. Mild-moderate sinus disease. Reviewed, dictated and finalized at location A.
== END 2025-02-20 09:04 | disposition home or self-care (01) ==
LOC: MICIMG 09:04
PROVIDERS: PCP Physician Assistant; Visit Provider Otolaryngology
DX: J32.0 Chronic maxillary sinusitis (principal); R44.8 Other symptoms and signs involving general sensations and perceptions
CPT/HCPCS: 70486

== ENCOUNTER 2025-03-09 14:27 | Outpatient (CLI) | payer OTHER, SELFPAY ==
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
--- OUTSIDE RECORDS SUMMARY | 2025-03-09 15:34 | XMS_ITS | Continuity of Care Document ---
Author Organization [facility] Address [address] [place] [address] Insurance Providers Payer Plan Claims Address Claims Phone Policy Number Group Number Relation Employer Guarantor Name Guarantor Guarantor Address Guarantor Phone [employer] Enterpri se tel:[phone] [id number] Self Prabhu [place] 1990 [place] [address] [id number] Self Prabhu [place] 1990 [place] [address] Comme rcial 1 Enterpri se [id number] Self Prabhu [place] [address] Problems Condition ICD9 code ICD10 code SNOMED code Start Date End Date S tatus Encounter for screening for other metabolic disorders Z13.228 Results No Results Allergies, adverse reactions, alerts No known allergies and adverse reactions Medications No administered medications reported Vital Signs No vital signs reported Social History No smoking Hx information available
--- OUTSIDE RECORDS SUMMARY | 2025-03-09 15:34 | XMS_ITS | Clinical Summary ---
Author Organization [facility] Address [address] [place] [address] Care Team Providers Care Pediatric Occupational Therapist Name Role Phone Kit Alas MD Primary Care Provider [phone] Social History Tobacco Use Types Packs/Day Years Used Date Smoking Tobacco: Never Assessed Sex and Gender Information Value Date Recorded Sex Assigned at Not on file Legal Sex Male 7:15 PM CDT Gender Identity Not on file Sexual Orientation Not on file Plan of Treatment Health Maintenance Due Date Last Done Comments Annual Physical 02/10/1995 DTaP, Tdap and Td Vaccines (6 - Tdap) 02/10/2003 11/25/1996, 11/11/1993, 1992, Additional history exists Hepatitis C 02/10/2010 Hepatitis B Vaccines (1 of 3 - 19+ 3-dose series) 02/10/2011 HPV Vaccines (1 - 3-dose SCDM series) 02/10/2019 COVID-19 Vaccine ( season) 2024 Meningococcal B Vaccine Aged Out No l onger eligible based on patient's age to complete this topic Meningococcal Vaccine Aged Out No briana nona eligible based on patient's age to complete this topic Pneumococcal Vaccine: Pediatrics (0 to 5 Years) and At-Risk Patients (6 to 49 Years) Aged Out No longer eligible based on patient's age to complete this topic RSV Immunizations Under 20 Months Aged Out No longer eligible based on patient's age to complete this topic Insurance [facility] Care Teams Pediatric Occupational Therapist Relationship Specialty Start Date End Date Kit Alas MD PCP - General 05/15/16
--- NOTE | 2025-03-09 15:49 | WPDPFTINT ---
PFT Procedure Performed PFT Procedure Performed Spirometry with Pre/Post Bronchodilator Plethysmography (Lung Vol) Diffusing Cap (DLCO) Flow Vol Loop PFT Interpretation This is a pulmonary function test with pre and post-bronchodilator spirometry, plethysmography and diffusing capacity. The test was performed and results interpreted in accordance with the 2019 and 2005 ATS/ERS Task Force guidelines respectively using the Global Lung Function Initiative-2012 reference equations. Patient demonstrated good effort and cooperation. Reproducibility criteria were met. The quality of the pre bronchodilator spirometry maneuver was Grade A and post bronchodilator spirometry maneuver was Grade A. Findings: Spirometry: The contour the inspiratory and expiratory flow tracing are normal. The pre bronchodilator FVC is 4.40 L, 91% predicted. The pre bronchodilator FEV1 is 3.25 L, 81% predicted. The pre bronchodilator FEV1: FVC ratio 74%. The post bronchodilator FVC is 4.41 L, representing no change. The post bronchodilator FEV1 is 3.30 L, representing a 3% increase. The post bronchodilator FEV1: FVC ratio 76%. Plethysmography: The total lung capacity is 4.99 L, 79% predicted. The functional residual capacity is 1.18 L, 39% predicted. The residual volume is 0.59 L, 39% predicted. Diffusing capacity: The diffusing capacity unadjusted for hemoglobin and carboxyhemoglobin is 29.3, 88% predicted. The diffusing capacity adjusted for alveolar volume is 6.02, 115% predicted. Impression: The spirometry is normal without evidence of an obstructive abnormality. There is no significant improvement after inhaling a single dose of albuterol. The total lung capacity is normal with a decreased functional residual capacity and residual volume. This is an abnormal but nonspecific lung volume pattern. The diffusing capacity is normal. There are no prior studies for comparison
== END 2025-03-09 14:28 | disposition home or self-care (01) ==
LOC: ANHPFT 14:28
PROVIDERS: PCP Hospitalist; Visit Provider Physician Assistant
DX: R06.2 Wheezing (principal); R06.02 Shortness of breath
CPT/HCPCS: 94060; 94726; 94729

== ENCOUNTER 2025-04-10 11:18 | Outpatient (CLI) | payer OTHER, SELFPAY ==
--- OUTSIDE RECORDS SUMMARY | 2025-03-17 11:00 | XMS_ITS ---
Author Organization [facility] [place] ([address]) Address [address] [place] [address] Care Team Providers Care Design Tech Name Role Phone Lottie Shirley Primary Care Provider Surjit Marrero Unavailable [phone] RanjitRoger Unavailable [phone] Allergies Allergen (clinical drug ingredient) Drug/Non Drug [...] Risk Notes Problem Chronic fatigue syndrome (disorder) (34758015) Chronic fatigue, unspecified (R53.82) Active confirmed Problem Abnormal weight gain (185945453) Abnormal weight gain (R63.5) Active confirmed Problem Fatigue (56898123) Other fatigue (R53.83) Active confirmed Problem Malaise (269689396) Other malaise (R53.81) Active confirmed Vital Signs Blood pressure systolic 148 mm Hg 03/17/20 25 Blood pressure diastolic 82 mm Hg 025 Height 67 in 03/17/2025 Weight 302.9 lbs 03/17/2025 BMI 47.44 kg/m2 03/17/2025 Oximetry 98 % 03/17/2025 Encounters Encounter Location Date Provider Diagnosis [facility] [place] ([address]) [address] [facility] [address] [place] [address] 03/17/2025 Roger Church Chronic fatigue, unspecified R53.82 [...] LP-1 Agonist Administration Provider Name:Roger Church , 04/14/2025 04:45:00 PM, [address], [facility] [address], [place], [address], Provider Name:Roger Church , 04/14/2025 04:45:00 PM, [address], [address], [place], [address], Procedure Notes * Category Sub-Category Detail Notes [...] Dose Administered: 1 mg Route: SQ Location: [facility] Frequency: weekly Lot Number/Expiration: Medication Source: [facility] Adverse Reaction: None Progress Notes * Bakari HANEYDOB:1990 (35 yo M)Acc No.[id number]:03/17/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 N o Do you have faej-ht-nhpd carpeting? N o What is the age [...] Information: * Visit Code: * Procedure Codes: 69486 Ba Initial Consultation (tirzepatide). Images * Dermatology Examination/Prof ile Wocjspo2403/17/2025 16:22:25 * Electronic signature of Patjovanna Church MD, FAAAAI on 04/10/2025 at 11:25 AM CDT Sign off status: Pending * Provider: Kaity Church MD Date: 0 03/17/2025 Generated for Printi ng/Fasuzieg/eTransmitting on: 0 04/10/2025 11:25 AM CDT History and Physical Notes * [...]
--- OUTSIDE RECORDS SUMMARY | 2025-04-10 11:25 | XMS_ITS | Clinical Summary ---
Author Organization [facility] Address [address] [place] [address] Care Team Providers Care Green Inspector Name Role Phone Kit Alas MD Primary Care Provider [phone] Social History Tobacco Use Types Packs/Day Years [...] SCDM series) 02/10/2019 COVID-19 Vaccine ( season) 2025 Meningococcal B Vaccine Aged Out No l [...] patient's age to complete this topic Insurance [facility] Care Teams Green Inspector Relationship Specialty Start Date End Date Kit Alas MD PCP - General 05/15/16
--- OUTSIDE RECORDS SUMMARY | 2025-04-10 11:25 | XMS_ITS | Continuity of Care Document ---
Author Organization [employer] Address [address] [facility] [place] [address] Insurance Providers Payer Plan Claims Address Claims Phone Policy Number Group Number Relation Employer Guarantor Name Guarantor Guarantor Address Guarantor Phone ACC Enterpri se tel:[phone] [id number] Self Prabhu Rochaus 1990 [address] [place] [address] [id number] Self Prabhu Rochaus 1990 [address] [place] [address] Comme rcial 1 Enterpri se [id number] Self Prabhu Rochaus 1990 [address] [place] [address] Problems Condition ICD9 code ICD10 code SNOMED code Start Date End Date S tatus Encounter for screening for other metabolic disorders Z13.228 Results No Results Allergies, adverse reactions, alerts No known allergies and adverse reactions Medications No administered medications reported Vital Signs No vital signs reported Social History No smoking Hx information available
--- OUTSIDE RECORDS SUMMARY | 2025-04-10 11:25 | XMS_ITS | Patient Health Record ---
Author Organization [facility] Address [address] [place] [address] RADHA Camacho [address] Care Team Providers Care Antique Furniture Restorer Name Role Phone TERRELL IGLESIAS Primary Care Provider Stas Grace Unavailable [phone] TIM GARCIA CHARLES Unavailable Unavailable ALLERGIES No [...] confirmed Pain of right shoulder region (finding) (7254965266) Problem Spondylosis without myelopathy or radiculopathy, lumbar region (M47.816) Active confirmed Lumbosacral spondylosis without myelopathy (43806157) Problem Intervertebral disc disorders with radiculopathy, 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) Active confirmed Thoracic radiculopathy (84914775) Problem Intervertebral disc disorders with radiculopathy, lumbar region (M51.16) Active confirmed Radiculopathy d ue to lumbar intervertebral disc disorder (045484418835124) Problem Other intervertebral disc degeneration, lumbar region (M51.36) Active confirmed Degeneration of lumbar intervertebral disc (11417933) Problem Radiculopathy, cervical region (M54.12) Active confirmed Cervical radiculopathy (83116883) Problem Radiculopathy, thoracic region (M54.14) Active confirmed Thoracic radiculopathy (14008736) Problem Radiculopathy, lumbar region (M54.16) Active confirmed Lumbar radiculopathy (852919652) Problem Radiculopathy, lumbosacral region (M54.17) Active confirmed Lumbosacral radiculopathy (8252093) Problem 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) Active confirmed Spinal stenosis of thoracic region (16401581) Problem 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 [place] [address] [id number] BECKY WYATT Self - patient is the insured [address] [facility] [address] [address] [place] [address] [id number] [phone] [id number] BECKY WYATT Self - patient is the insured MEDICAL (GENERAL) HISTORY Medical History History ICD Code right inguinal hernia gastroesophageal reflux disease (GERD) depression anxiety Possible back injury Surgical History Surgery Date(Month/Year) inguinal hernia repair, right 2005
--- OUTSIDE RECORDS SUMMARY | 2025-04-10 11:26 | XMS_ITS | Patient Health Record ---
Author Organization [facility] ([address]) Address [address] [place] [address] Care Team Providers Care Gutter Hanger Name Role Phone Lottie Shirley Primary Care Provider Unavailab Surjit Quinteros Unavailable [phone] Ranjit Roger Unavailable [phone] Allergies Allergen (clinical drug ingredient) Drug/Non Drug Allergy documented on EMR Reaction Allergy Type Onset Date Status melatonin Melatonin Unknown Drug Allergy Active Results Component Value Reference Range Notes -TSH (Not yet reviewed by goldy hinojosa) Interpretation: Performing Lab:[facility], [address], [place] [id number], Phone - [phone], Director - Jose Cruz Notes/Report: TSH 0.656 0.450-4.500 uIU/mL -CBC With Differential/Plate let (Not yet reviewed by provider) Interpretation: Performing Lab:[facility], [address], [place] [id number], Phone - [phone], Director - Jose Cruz Notes/Report: WBC 8.7 3.4-10.8 x10E3/uL RBC 5.62 4.14-5.80 x10E6/uL Hemoglobin 15.7 13.0-17.7 g/dL Hematocrit 49.5 37.5-51.0 % MCV 88 79-97 fL MCH 27.9 26.6-33.0 pg MCHC 31.7 31.5-35.7 g/dL RDW 14.2 11.6-15.4 % Platelets 317 150-450 x10E3/uL Neutrophils 54 Not Estab. % Lymphs 32 Not Estab. % Monocytes 6 Not Estab. % Eos 6 Not Estab. % Basos 1 Not Estab. % Neutrophils (Absolute) 4.7 1.4-7.0 x10E3/uL Lymphs (Absolute) 2.8 0.7-3.1 x10E3/uL Monocytes(Absolute) 0.6 0.1-0.9 x10E3/uL Eos (Absolute) 0.6 0.0-0.4 x10E3/uL Baso (Absolute) 0.1 0.0-0.2 x10E3/uL Immature Granulocytes 1 Not Estab. % Immature Grans (Abs) 0.0 0.0-0.1 x10E3/uL -Sedimentation Rate-Westergr en (Not yet reviewed by provider) Interpretation: Performing Lab:[facility] [id number], Phone - [phone], Director - Jose Cruz Notes/Report: Sedimentation Rate-Westergren 5 0-15 mm/hr -Vitamin D, 1,25 Dihydroxy ( Not yet reviewed by provider) Interpretation: Performing Lab:[facility] [address] [id number], Phone - [phone], Director - Cruz Notes/Report: Calcitriol(1,25 di-OH Vit D) 49.5 24.8-81.5 pg /mL -Vitamin D, 25-Hydroxy (Not yet reviewed by provider) Interpretation: Performing Lab:[facility] [address] [id number], Phone - [phone], Director - Jose Cruz Notes/Report: Vitamin D, 25-Hydroxy 17.2 30.0-100.0 ng/mL Vitamin D deficiency has been defined by the [place] of Medicine and an Endocrine Society practice guideline as a level of serum 25-OH vitamin D less than 20 ng/mL (1,2). The Endocrine Society went on to further define vitamin D insufficiency as a level between 21 and 29 ng/mL (2). 1. IOM ([place] of Medicine). 2010. Dietary reference intakes for calcium and D. [place]: The National Academies Press. 2. Josie MF, Jann NC, Shanel KUMARI, et al. Evaluation, treatment, and prevention of vitamin D deficiency: an Endocrine Society clinical practice guideline. JCEM. 2010; 96(7):1911-30. -BROOKE w/Reflex (Not yet revie wed by provider) Interpretation: Performing Lab:[facility] [address] [id number], Phone - [phone], Director - Jose Cruz Notes/Report: BROOKE Direct Negative Negative Comp. Metabolic Panel (13) ( Not yet reviewed by provider) Interpretation: Performing Lab:[facility], [address] [place] [id number], Phone - [phone], Director - Jose Cruz Notes/Report: Glucose 116 70-99 mg/dL BUN 10 6-20 mg/dL Creatinine 1.14 0.76-1.27 mg/dL eGFR 88 >59 mL/min/1.73 BUN/Creatinine Ratio 9 9-20 Sodium 140 134-144 mmol/L Potassium 4.4 3.5-5.2 mmol/L Chloride 102 96-106 mmol/L Carbon Dioxide, Total 21 20-29 mmol/L Calcium 9.7 8.7-10.2 mg/dL Protein, Total 7.3 6.0-8.5 g/dL Albumin 4.8 4.1-5.1 g/dL Globulin, Total 2.5 1.5-4.5 g/dL Bilirubin, Total 0.5 0.0-1.2 mg/dL Alkaline Phosphatase 61 44-121 IU/L AST (SGOT) 30 0-40 IU/L Reason For Referral No Information Medications Medication SIG (Take, Route, Frequency, Duration) [...] Status W/U Status Risk Notes Problem Chronic allergic conjunctivitis (02752003) Other chronic allergic conjunctivitis (H10.45) Active confirmed Problem Essential hypertension (76285134) Essential (primary) hypertension (I10) Active confirmed Problem Allergic rhinitis caused by pollen (disorder) (82155739) Allergic rhinitis due to pollen (J30.1) Active confirmed Problem Allergic rhinitis (45511995) Other allergic rhinitis (J30.89) Active confirmed Problem Chronic rhinitis (25338539) Chronic rhinitis (J31.0) Active confirmed Problem Uncomplicated mild persistent asthma (465109416) Mild persistent asthma, uncomplicated (J45.30) Active confirmed Problem Uncomplicated moderate persistent asthma (339906282) Moderate persistent asthma, uncomplicated (J45.40) Active confirmed Problem Uncomplicated severe persistent asthma (292633561) Severe persistent asthma, uncomplicated (J45.50) Active confirmed Problem Malaise (215577705) Other malaise (R53.81) Active confirmed Problem Chronic fatigue syndrome (disorder) (24268643) Chronic fatigue, unspecified (R53.82) Active confirmed Problem Fatigue (69348909) Other fatigue (R53.83) Active confirmed Problem Abnormal weight gain (282621063) Abnormal weight gain (R63.5) Active confirmed Problem Allergic rhinitis caused by animal hair and dander (450479038264108) Allergic rhinitis due to animal (cat) (dog) hair and dander (J30.81) Active confirmed Vital Signs Blood pressure diastolic 82 mm Hg 03/17/2025 Oximetry 98 % 03/17/2025 Height 67 in 03/17/2025 Blood pressure systolic 148 mm Hg 03/17/2025 Weight 302.9 lbs 03/17/2025 BMI 47.44 kg/m2 03/17/2025 Encounters Encounter Location Date Provider Diagnosis [facility] [address] [facility] [employer] [facility] [employer] [address] [place] [address] 03/10/2025 Surjit Arias Rash and other nonspecific skin eruption R21 ; Essential (primary) hypertension I10 and Other allergic rhinitis J30.89 [facility] [address] [facility] [employer] [address] [place] [address] 01/20/2025 Surjit Arias Rash and other nonspecific skin eruption R21 ; Essential (primary) hypertension I10 and Other allergic rhinitis J30.89 [facility] ([address]) [address] [place] [address] 03/17/2025 Roger Church Chronic fatigue, unspecified R53.82 ; Abnormal weight gain R63.5 ; Other fatigue R53.83 and Other malaise R53.81 [facility] [address] [facility] [address] [place] [address] 03/25/2025 Surjit Arias Assessments Encounter Date Diagnosis (ICD Code) Assessment Notes Treatment Notes Treatment Clinical Notes Section Notes 03/17/2025 Chronic fatigue, unspecified (ICD-10 - R53.82) 03/10/2025 Rash and other nonspecific skin eruption (ICD-10 - R21) All laboratory testing was reviewed and returned normal with the exception of slightly elevated eosinophils which I believe is insignificant. 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 He will follow-up as needed 03/10/2025 Essential (primary) hypertension (ICD-10 - I10) 01/20/2025 Rash and other nonspecific skin eruption (ICD-10 - R21) Rash clearly occurs after being exposed to his environment at work. Does appear to improve when he is not in the office. It is reasonable to request that he face worker for the next 6 weeks, he will take weekly photographs and will monitor for improvement. If improved we may consider a rechallenge. it is also important to note that he is on testosterone which may be the underlying cause of his acneiform rash although he has been on the testosterone for over a year and a half and clearly his symptoms improved when he is not exposed to the work environment. I will order screening laboratory testing for any systemic etiology to include the labs noted below. 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 01/20/2025 Essential (primary) hypertension (ICD-10 - I10) 01/20/2025 Other allergic rhinitis (ICD-10 - J30.89) Clearly he has a history of mild allergic rhinitis to certain pollens based on his personal history but recent skin testing suggested dust mite sensitivity. He has minimal symptoms and we will not intervene with any therapy. 03/10/2025 Other allergic rhinitis (ICD-10 - J30.89) Clearly he has a history of mild allergic rhinitis to certain pollens based on his personal history but recent skin testing suggested dust mite sensitivity. He has minimal symptoms and we will not intervene with any therapy. 03/17/2025 Abnormal weight gain (ICD-10 - R63.5) Will wait on probiotics - and no history of GI symptoms, Encouraged to start Visbiome or better Glucose control given his elevated A1C. Start Tirzepatide and return in 4 weeks. Dosing as below. 03/17/2025 Other fatigue (ICD-10 - R53.83) 03/17/2025 Other malaise (ICD-10 - R53.81) 01/20/2025 Other 03/10/2025 Other Plan Of Treatment Pending Test Test Name Order Date X ray : Chest 01/20/2025 X ray : Chest 03/10/2025 -TSH 01/20/2025 -CBC With Differential/Platelet 01/21/20 25 -Sedimentation Rate-Westergren 5 -Vitamin D, 1,25 Dihydroxy 01/20/2025 -Vitamin D, 25-Hydroxy 01/20/2025 -BROOKE w/Reflex 01/20/2025 Comp. Metabolic Panel (13) 01/20/2025 Next Appt Details Provider Name:Roger Latosha Church , 04/14/2025 04:45:00 PM, [address], [place], [address], Provider Name:Roger Church , 04/14/2025 04:45:00 PM, [address], [place], [address], Insurance Providers Payer Name Payer Address Payer Phone Subscriber Number Group Number Insured Name Patient Relationship to Insured Coverage Start Date Coverage End Date [facility] [address] [address] [place], [place] [id number] Bakari Haney Self - patient is the insured Medical (General) History Medical History History ICD Code high blood pressure low testerone Surgical History Surgery Date(Month/Year) Hernia repair Hospitalization History Reason Date(Month/Year) See Above
--- NOTE | 2025-04-10 11:33 | ECG_ITS ---
Test Date: 2025-04-10 11:40:41 Measurements Intervals [place] Rate: 93 P: 44 VT: 176 QRS: 5 QRSD: 103 T: 27 QT: 325 QTc: 406 Interpretive Statements SINUS RHYTHM NONSPECIFIC ST ABNORMALITY ABNORMAL ECG No previous ECG available for comparison Electronically Signed On 04-10-2025 13:06:53 CDT by Arnaldo Potter M.D.
== END 2025-04-10 11:19 | disposition home or self-care (01) ==
LOC: ANHSURGERY 11:22
PROVIDERS: PCP Physician Assistant; Visit Provider Otolaryngology
DX: I10 Essential (primary) hypertension (principal); Z01.818 Encounter for other preprocedural examination; R94.31 Abnormal electrocardiogram [ECG] [EKG]
CPT/HCPCS: 93005

== ENCOUNTER 2025-04-20 00:31 | Day surgery (SDC) | payer OTHER, SELFPAY ==
--- OUTSIDE RECORDS SUMMARY | 2001-09-10 09:00 | XMS_ITS | Continuity of Care Document ---
Author Organization [facility] Address [address] [place] [address] Phone Care Team Providers Care Special Agent Name Role Phone Naveed Brooks DO Unavailable Unavailable Advance Directives Directive Yes / No Effective Date File Name No Information Encounters Encounter Description Practice Location Reason(s) For Visit Diagnoses Date Provider Providers Copied on Encounter [facility], [address] [place], [place], [id number], tel:[phone] [facility] No Information Todd Saleem. [address] [place], [address], . tel: [phone] Family History Family Member Type Diagnosis Age At Onset No Information Payers Payer name Insurance type Covered libertarian ID Authoriza tion(s) Medicaid [facility] [id number] Social History Type Description Quantity Date Captured Comments Sex Male Smoking Status No Information Chief Complaint And Reason For Visit No Information Reason For Referral Reason For Referral No Information History Of Present Illness Encounter Date Complaint History Of Prese nt Illness No Information Functional Status Date Functional Assessmen t No Information Instructions Date Instruction Additional Infor mation No Information Assessments Type Assessment Date No Information Patient Care Teams Name Effective Dates (start - stop) Status Members No Information
--- OUTSIDE RECORDS SUMMARY | 2023-01-02 09:47 | XMS_ITS | Continuity of Care Document ---
Author Organization [facility] Address [address] [place] [address] [address] [place] [address] Phone Care Team Providers Care Operations Business Partner Name Role Phone Bland PT,MPT,ATC, Donis Unavailable Unavai lable Procedures Procedure Date Therapeutic Activities Neuromuscular Re-Ed Therapeutic Exercise Therapeutic Activities Neuromuscular Re-Ed Therapeutic Exercise Therapeutic Activities Neuromuscular Re-Ed Therapeutic Exercise Therapeutic Activities Neuromuscular Re-Ed Therapeutic Exercise Therapeutic Activities Neuromuscular Re-Ed Therapeutic Exercise Therapeutic Activities Neuromuscular Re-Ed Therapeutic Exercise Therapeutic Activities Neuromuscular Re-Ed Therapeutic Exercise Therapeutic Activities Neuromuscular Re-Ed Therapeutic Exercise Therapeutic Activities Neuromuscular Re-Ed Therapeutic Exercise Therapeutic Activities Neuromuscular Re-Ed Therapeutic Exercise Therapeutic Activities Neuromuscular Re-Ed Therapeutic Exercise Therapeutic Activities Neuromuscular Re-Ed Therapeutic Exercise Therapeutic Activities Neuromuscular Re-Ed Therapeutic Exercise Therapeutic Activities Neuromuscular Re-Ed Therapeutic Exercise Therapeutic Activities Neuromuscular Re-Ed Therapeutic Exercise Therapeutic Activities Neuromuscular Re-Ed Therapeutic Exercise Therapeutic Activities Neuromuscular Re-Ed Therapeutic Exercise Therapeutic Activities Neuromuscular Re-Ed Therapeutic Exercise PT Evaluation Low Complexity Therapeutic Activities Neuromuscular Re-Ed Advance Directives Directive Yes / No Effective Date File Name No Information Encounters Encounter Description Practice Location Reason(s) For Visit Diagnoses Date Provider Providers Copied on Encounter [facility], [id number], tel:[phone] [place] No Information [address] [place], [place]. [facility], [place], [place], [id number], tel:[phone] [place] No Information 3 [place]. . Referring Provider: Stas Kessler, [address] [place], [address]. tel:[phone] [facility], [place], [place], [id number], tel:[phone] [place] No Information 3 [place]. . Referring Provider: Stas Kessler [address], [place], [address]. tel:[phone] [facility], [place], [place], [id number], tel:[phone] [place] No Information May-0 9-202 3 [place]. . Referring Provider: Stas Kessler, [address], [place], [address]. tel:[phone] [facility], [address], [place], [place], [id number], tel:[phone] [place] No Information November-0 5-202 3 [place]. . Referring Provider: [address], [place], [address]. tel:[phone] [facility], [address], [place], [place], [id number], [place] tel:[phone] [place] No Information Apr-2 - 3 [place]. . Referring Provider: [address], [place], [address]. tel:[phone] [facility], [address], [place], [place], [id number], [place] tel:[phone] [place] No Information Apr-2 - 3 [place]. . Referring Provider: [address], [place], [address]. tel:[phone] [facility], [address], [place], [place], [address], [place] tel:[phone] [place] No Information Apr-2 0-202 3 [place]. . Referring Provider: [address], [place], [address]. tel:[phone] [facility], [address], [place], [place], [address], [place] tel:[phone] [place] No Information Apr-1 8-202 3 [place]. . Referring Provider: [address], [place], [address]. tel:[phone] [facility] [facility], [place], [place], [address], [place] tel:[phone] [place] No Information - 3 [place]. . Referring Provider: [address], [place], [address]. tel: [facility], [place], [place], [address], [place] tel:[phone] [place] No Information Oct-0 - 3 [place]. . Referring Provider: [address], [place], [address]. tel: [facility] [facility], [place], [place], [address], [place] tel:[phone] [place] No Information 0 - 3 [place]. . Referring Provider: [address], [place], [address]. tel: [facility] [facility] [address] [facility], [place], [place], [id number], [place] tel:[phone] [place] No Information Sep-2 3 [place] Miguel. . Referring Provider: [address], [place], [address]. tel: [facility], [place], [place], [address], [place] tel:[phone] [place] No Information Sep-2 - 3 [place]. . Referring Provider: [address], [place], [address]. tel: [facility], [place], [place], [address], [place] tel: [phone] [place] No Information Mar-1 7-202 3 [place] Miguel. . Referring Provider: [address], [place], [address]. tel:[phone] [facility], [address], [place], [place], [id number], tel:[phone] [place] No Information Mar-1 4-202 3 [place] Miguel. . Referring Provider: [address], [place], [address]. tel:[phone] [facility], [address] [facility] [address], [place], [place], [address], [place] tel:[phone] [place] No Information Mar-1 0-202 3 [place]. . Referring Provider: [address], [place], [address]. tel:[phone] [facility], [address], [place], [place], [address], [place] tel:[phone] [place] No Information Mar-0 7-202 3 [place]. . Referring Provider: [address], [place], [address]. tel:[phone] [facility], [address] [address], [place], [place], [address], [place] tel:[phone] [place] No Information Mar-0 3-202 3 [place]. . Referring Provider: [address], [place], [address]. tel:[phone] [facility], [address] [facility], [place], [place], [address], [place] tel:[phone] [place] No Information Aug- 8-202 3 David Floyd. . Referring Provider: [address], [place], [address]. tel:[phone] Family History Family Member Type Diagnosis Age At Onset No Information Payers Payer name Insurance type Covered republican ID Toby heck(s) [employer] [facility] 00 Social History Type Description Quantity Date Captured Comments Sex Male Smoking Status No Information Chief Complaint And Reason For Visit No Information Reason For Referral Reason For Referral No Information History Of Present Illness Encounter Date Complaint History Of Prese nt Illness No Information Functional Status Date Functional Assessmen t No Information Instructions Date Instruction Additional Infor karen Giving encouragement to exercise Related to Overweight Giving encouragement to exercise Related to Overweight Assessments Type Assessment Date No Information Patient Care Teams Name Effective Dates (start - stop) Status Members No Information
--- OUTSIDE RECORDS SUMMARY | 2025-03-17 11:00 | XMS_ITS ---
Author Organization [facility]ly [facility] [place] ([address]) Address [address] [place] [address] Care Team Providers Care Buggy Runner Name Role Phone Lottie Shirley Primary Care Provider Surjit Marrero Unavailable [phone] RanjitRoger Unavailable [phone] Allergies Allergen (clinical drug ingredient) Drug/Non Drug Allergy documented on EMR Reaction Allergy Type Onset Date Status melatonin Melatonin Unknown Drug Allergy Active REASON FOR VISIT [facility], interested in peptide therapy, No prior GLP-1's previously, Desired weight loss (fat): 104.3 lbs, Pre-diabetic with A1C 5.7 - will bring in labs but thyroid is normal, No history MTC or MEN2 or pancreatitis, Concerned about future DM and OA Medications Medication SIG (Take, Route, Frequency, Duration) Notes Start Date End Date Status Vitamin D2 50 MCG (1999) 1 tablet Ora lly Once a day Active Cialis 5 MG 1 tablet as needed O rally Once a day Active Testosterone 01/20/2025 Active Losartan Potassium 25 MG 1 tablet Orally Once a day; Duration: 30 day(s) 01/20/2025 Active B12 01/20/2025 Active Social History Tobacco Use: Social History Observation Description Date Details (start date - stop date) Never Smoker NA - NA Sex Assigned At : Social History Observation Description Sex Assigned At Male Tobacco Control (Standard) Question Answer Notes Tobacco use: Nonsmoker Problems Problem Type SNOMED Code ICD Code Onset Dates Problem Status W/U Status Risk Notes Problem Chronic fatigue syndrome (disorder) (10451658) Chronic fatigue, unspecified (R53.82) Active confirmed Problem Abnormal weight gain (532731682) Abnormal weight gain (R63.5) Active confirmed Problem Fatigue (99539481) Other fatigue (R53.83) Active confirmed Problem Malaise (336594612) Other malaise (R53.81) Active confirmed Vital Signs Blood pressure systolic 148 mm Hg 03/17/20 25 Blood pressure diastolic 82 mm Hg 025 Height 67 in 03/17/2025 Weight 302.9 lbs 03/17/2025 BMI 47.44 kg/m2 03/17/2025 Oximetry 98 % 03/17/2025 Encounters Encounter Location Date Provider Diagnosis [facility] [place] ([address]) [address] [facility] [address] [place] [address] 03/17/2025 Roger Church Chronic fatigue, unspecified R53.82 ; Abnormal weight gain R63.5 ; Other fatigue R53.83 and Other malaise R53.81 Assessments Encounter Date Diagnosis (ICD Code) Assessment Notes Treatment Notes Treatment Clinical Notes Section Notes 03/17/2025 Chronic fatigue, unspecified (ICD-10 - R53.82) 03/17/2025 Abnormal weight gain (ICD-10 - R63.5) Will wait on probiotics - and no history of GI symptoms, Encouraged to start Visbiome or better Glucose control given his elevated A1C. Start Tirzepatide and return in 4 weeks. Dosing as below. 03/17/2025 Other fatigue (ICD-10 - R53.83) 03/17/2025 Other malaise (ICD-10 - R53.81) Plan Of Treatment Next Appt Details Follow Up: 1 Week, Reason: G LP-1 Agonist Administration Provider Name:Roger Church , 04/22/2025 04:15:00 PM, [address], [facility] [address], [place], [address], Provider Name:Roger Church , 04/22/2025 04:30:00 PM, [address], [facility] [address], [place], [address], Procedure Notes * Category Sub-Category Detail Notes Record Review Outside Records I spent: Patient rep orts normal TSH, elevated A1C, will bring in labs next week or, Patient will e-mail current labs that were reviewed, to be attached to their medical record Quell: Weight Management tirzepatide Indicat ion: weight loss Concentration: 10 mg/mL Volume Administered: 0.1 mL Dose Administered: 1 mg Route: SQ Location: [facility] Frequency: weekly Lot Number/Expiration: Medication Source: [facility] Adverse Reaction: None Progress Notes * Bakari HANEYDOB:1990 (35 yo M)Acc No.[id number]: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 [facility], interested in peptide therapy. 2. No prior GLP-1's previously. 3. Desired weight loss (fat): 104.3 lbs. 4. Pre-diabetic with A1C 5.7 - will bring in labs but thyroid is normal. 5. No history MTC or MEN2 or pancreatitis. 6. Concerned about future DM and OA. * HPI: * Introduction: HPI: [age] year-old WM with MO here for weight loss evaluation. On TRT with PMD. Pre- diabetic. N o history of pancreatitis, no MEN II or MTC. Patient is not taking DIM. N o GI symptoms. Patient has normal TSH but didn't bring labs. Will next visit. T peggy, he reports no fevers, chills, night sweats or other constitutional symptoms. * Aesthetics & Wellness: The risks, benefits & alternatives were discussed regarding available treatment options. A treatment path was determined after reviewing the patients medical records, our verbal discussions and via joint decision-making Consents for our planned treatments were signed and are on file. * Medical History: H igh blood pressure, Low testerone. * Surgical History: H ernia repair . * Hospitalization/Major Diagno stic Procedure: S ee Above . * Family History: F ather: alive, Yes. M other: alive, Yes. P aternal Grand Father: No. P aternal Grand Mother: No. M aternal Grand Father: No. M aternal Grand Mother: No. S iblings: Yes.?Children: No. * Social History: M arital Status What is your marital status? s chetan A lcohol Screening Do you ever drink alcoholic beverages? Y es Number of drinks per occasion: 3 Frequency? E very other month S moking Have you ever smoked tobacco: n ever smoked Additional Findings: Tobacco Non-User N on-smoker for amish reasons Are you a : n ever smoker R ecreational drug use Have you ever used recreational drugs? N o D etails on consumption of certain products? Do you regularly consume products with aspartame; Equal or NutraSweet? Y es Do you regularly consume products with artificial coloring??Yes Have you ever noticed worsening of your rash with these food items? N o E xercise What kind(s) of exercise do you perform regularly? w alking,biking,weight training,other,age-appropriate participation in physical activites How often do you perform this exercise? d aily A re any of the following personal care products containing fragrance, dye or preservatives used regularly? Shampoo: Y es Conditioner: Y es Soap: Y es Laundry Detergent: Y es Fabric Softener: Y es Deodorant: Y es Perfume, cologne, after shave: N o Air freshners or other scented products: N o Hair coloring dyes or rinses: N o O ccupation Are you currenly employed? Y es Employment status? 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 number of years?4 Do you believe that your current or previous occupation has any bearing on your illness? Y es How much work have you missed due to breathing difficulty within the past year? 1 week Please describe the effect of your illness on your job l oss of work Do you have any pending or planned legal action against your current or former employer which pertains to your medical illness? Y es Do you anticipate that your evaluation will be used in any legal action against your current employer or former employer? Y es Have you had any job with high exposure to fumes, chemicals, dust or other noxious substances? Y es Are you currently a student? N o E nvironmental History Living environment: p rivate home,with pets Where is the home located[place],near any major factories or industries Age of home: 1 00 How long have you lived there? 2 -4 years How many people live in the home? 2 H ome description Basement: Y es Any water damage in basement? N o Smokers in the home? N o Smokers outside the home? N o Air Conditioning? Y es Central Air? Y es Forced air heating? Y es Gas or electric? g as Fireplace? N o Wood burning stove? N o Do you vacuum the home? Y es Air purification systems? N o Pillow and mattress dust-proof encasings? N o Do you use a humidifier? N o Do you own any pets? Y es What kind(s)? (click all that apply) c ats,dog Where do your pets sleep? a nywhere in the house Fabric softeners used? Y es Plants in the home? Y es How many? 1 0 Where are they kept? k itchen,outside,other room in home Is there carpeting in your bedroom? N o Do you have mzed-gn-goyk carpeting? N o What is the age of your mattress (years)? 8 What material(s) are used to manufacture your bedding and pillow? n atural fiber (e.g. cotton) What is the age of your pillow (years)? 1 What material are your bedding items made of? n atural fiber (e.g. cotton) Do you sleep with quilts or blankets or a duvet? Y es What material? n atural fiber (e.g. cotton) How many cats? 1 How many dogs? 1 T obacco Control (Standard) Tobacco use: N onsmoker * Medications: T aking Cialis 5 MG Tablet 1 tablet as needed Orally Once a day , Taking Vitamin D2 50 MCG (2000 UT) Tablet 1 tablet Orally Once a day , Taking Losartan Potassium 25 MG Tablet 1 tablet Orally Once a day , Taking Testosterone , Taking B12 , Medication List reviewed and reconciled with the patient * Allergies: M elatonin. Objective: * Vitals: B P:148/82mm Hg, HR:95/min, Pulse Oximetry:98%, Ht: 67 in, Wt: 302.9 lbs, BMI:47.44Index. * Dermatology Examination: Assessment: * Assessment: 1. A bnormal weight gain - R63.5 (Primary) 2 . C hronic fatigue, unspecified - R53.82 3 . O ther fatigue - R53.83 4 . O ther malaise - R53.81 Plan: * Treatment: * Procedures: Q uell: Weight Management: tirzepatide I ndication w eight loss C oncentration 1 0 mg/mL V olume Administered 0 .1 mL D ose Administered 1 mg R oute S Q L ocation L UA F requency w eekly L ot Number/Expiration 1 M edication Source V ital RX Pharmacy A dverse Reaction N one R ecord Review: Outside Records I spent P atient reports normal TSH, elevated A1C, will bring in labs next week or, Patient will e-mail current labs that were reviewed, to be attached to their medical record * Follow Up: 1 Week (Reason: GLP-1 Agonist Administration) * Billing Information: * Visit Code: * Procedure Codes: 08532 Ba Initial Consultation (tirzepatide). Images * Dermatology Examination/Prof ile [id number]/17/2025 16:22:25 * Electronic signature of Patjovanna Church MD, FAAAAI on 04/20/2025 at 12:34 AM CDT Sign off status: Pending * Provider: Kaity Church MD Date: 03/17/2025 Generated for Printi ng/Fasuzieg/eTransmitting on: 0 04/20/2025 12:34 AM CDT History and Physical Notes * HPI (History of Present Illness) Category Sub-Category Detail Notes Category Not es *Introduction HPI: 35 year-old WM w ith MO here for weight loss evaluation. On TRT with PMD. Pre-diabetic. No history of pancreatitis, no MEN II or MTC. Patient is not taking DIM. No GI symptoms. Patient has normal TSH but didn't bring labs. Will next visit. Today, he reports no fevers, chills, night sweats or other constitutional symptoms *Aesthetics & Wellness The risks, benefits & alternatives were discussed regarding available treatment options. A treatment path was determined after reviewing the patients medical records, our verbal discussions and via joint decision-making Consents for our planned treatments were signed and are on file
[2025-04-08 14:59] VITALS: BMI 46.7
--- NOTE | 2025-04-08 15:23 | PC.NURSE ---
[facility] has started construction of its new state of the art ER which will open Spring 2026. With this, we anticipate parking may be a challenge for some our surgical patients and families. Parking spaces are limited but are available for all Surgical, obstetrics, and ER patients sharing this lot. If you arrive and find you are having a hard time finding a parking space, please note that we understand the challenges, please drive around the hospital and park near Hospital Entrance 1. When you enter this entrance, you can ask a volunteer to direct or take you back to the surgical waiting area to check in. We appreciate everyone?s understanding of these expected challenges while we build for your future. Report to the Outpatient Waiting Room, entrance under the green pavilion located off [address], at time _0600 on date _04/20/25 . Planned Procedure Time: _30 .? Time changes happen often and if your time is changed the preop area will call you the afternoon before. - You and your visitor will be asked to self-screen and do not enter if you have any COVID symptoms. Please call surgeon if you need to reschedule. - A mask is optional within the hospital at this time. Patients may have clear liquids (water, carbonated beverages, clear teas, apple juice) until 3 hours prior to surgery with a maximum of 20 ounces. - No food from midnight until time of surgery and no smoking, or chewing tobacco (or any form of nicotine). No chewing gum, candy or mints. - Infants may have breast milk until 4 hours before surgery, infant formula 6 hours prior to surgery. - Children will be allowed to drink immediately following surgery.? If applicable, please bring a bottle or sippy cup to assist with drinking. Juice, water, soda, and popsicles are readily available.? For infants on formula, please bring formula the day of surgery.? Pacifiers are allowed. Take only the following medications with a SIP of water on the morning of surgery: _Hydrocodone DO NOT STOP ANY OF YOUR OTHER PRESCRIPTION MEDICATIONS PRIOR TO SURGERY EXCEPT THE FOLLOWING Hold all vitamins and supplements for 3 days per anesthesiologist. Medications to discontinue per physician N/A Date to take last dose___N/A Please no make-up, nail [place], hairspray, perfume, deodorant, or body powder the day of surgery.? No jewelry (including any body piercings) or valuables the day of surgery, leave them at home.? Please take a shower or bath the night before, or the morning of, surgery with an antibacterial soap.? Wear comfortable, loose fitting clothing.? Children are encouraged to wear pajamas. - Jewelry must be removed prior to entering the operating room.? Rings and piercings that are not removed may be cut off. - The hospital will not accept responsibility for valuables.? - Please leave all valuables, including medications, at home the day of surgery. If you are going home after surgery, a licensed patient transportation driver must drive you home.? - NO public transportation without another adult if you receive anesthesia. - We recommend that an adult stay with you for 24 hours following discharge. - We also recommend that you do not drive, make important decision, drink alcoholic beverages, or take any drugs that were not prescribed by your health care provider for at least 24 hours after your discharge time. For Pediatric surgeries, we recommend two adults accompany the child home. Follow any additional instructions given to you from your surgeon. Telephone instructions given to Muna and asked if any additional questions and then verbalized understanding. Patient advised to call surgeon office or pre surgery nurse liaison [phone] if any additional questions.
--- NOTE | 2025-04-19 16:50 | PM.IMHP ---
H&P: HPI History of Present Illness Date/Time: 04/19/25 16:50 Chief Complaint: Recurrent sinusitis, chronic sinusitis, septal deviation Narrative: Patient presents for planned surgical procedure Review of Systems Review of Systems: All systems reviewed & are unremarkable except as noted in HPI and below PMFSH Past Medical History Medical History (Updated 04/19/25 @ 16:52 by Kyle Quintanilla MD) Migraine GERD (gastroesophageal reflux disease) Asthma Anxiety Allergies Prediabetes Hypertension IBS (irritable bowel syndrome) Arthritis Back pain Obese Surgical History Surgical History (Updated 04/16/25 @ 14:27 by Kamille Lovett MA) Right groin mass S/P EXC RT GROIN CYST 04/02 DR. ROSINA KEVIN H/O hernia repair Family History Family History Grandparent Breast cancer Alcoholism Depression Diabetes mellitus Heart problem Hypertension Cerebrovascular accident Father Alcoholism Asthma Depression Diabetes mellitus Heart problem Hypertension Sibling Alcoholism Asthma Depression Hypertension Mother Depression Hypertension Other Carcinoma of colon Dementia Social History Social History Smoking status: Never smoker Alcohol intake: current Alcohol use details: less than one a week, social drinker. Substance use: current Substance use type: marijuana Other substance usage details: rare use 3x per year Last use: 11/20/24 Do You Feel Safe in your Home?: Yes Lack of Transportation: No Lack of Food: Never True Current Housing: I Have Housing Concerned About Future Housing: No Difficulty Paying Gas/Electric Bills: No Difficulty Paying for Meds: YES Currently Unemployed: No Education: Master's Degree or Higher Difficulty w/ Childcare or Family Care: No Living arrangements: with family Gender identity (if verbalized by the patient): Male Spiritual care concerns: No Meds Home Medications and Allergies Home Medications ?Medication ?Instructions ?Recorded ?Confirmed ?Type testosterone cypionate 100 mg/mL 50 mg IM .Bi Monthly 01/21/25 04/08/25 History intramuscular oil cyanocobalamin (vitamin B-12) 1,000 mcg IM MONTHLY 02/03/25 04/08/25 History 1,000 mcg/mL injection solution fluticasone propionate 50 2 spray intranasal BID #16 grams 02/03/25 04/08/25 Rx mcg/actuation nasal spray,suspension (Flonase Allergy Relief) ketoconazole 2 % shampoo 1 applic topical .bi weekly 02/03/25 04/08/25 History syringe with needle 3 mL 25 gauge #1 ea 02/03/25 04/08/25 History x 1 (BD Luer-David Syringe) tadalafil 5 mg tablet (Cialis) 2.5 mg PO DAILY bladder spasms 04/02/25 04/08/25 History hydrocodone 5 mg-acetaminophen 325 2 tablet PO Q4-6H PRN pain 04/08/25 04/08/25 History mg tablet losartan 25 mg tablet 25 mg PO DAILY 04/08/25 04/08/25 History doxycycline hyclate 100 mg capsule 100 mg PO BID #14 caps 04/14/25 Rx mupirocin 2 % topical ointment 1 applic topical BID #22 grams 04/14/25 Rx (Centany) Allergies Allergy/AdvReac Type Severity Reaction Status Date / Time melatonin Allergy Intermediate Muscle Verified 04/16/25 14:23 Spasms dust mites Allergy Mild Unknown Uncoded 04/16/25 14:23 Exam Narrative: Septal deviation chronic appearing sinuses Assessment and Plan Assessment and plan (1) Chronic sinusitis: Code(s): J32.9 - Chronic sinusitis, unspecified Status: Acute Assessment and Plan: Plan OR for image guided endoscopic right-sided maxillary antrostomy and anterior ethmoidectomy, left-sided maxillary antrostomy total ethmoidectomy and frontal sinusotomy, possible septoplasty, anesthesia general, total operative time 2:00 hours. Risks were discussed see previous notes. But risks discussed were bleeding infection CSF leak greater than damage change in vision total and septal perforation need further procedures failure resolve symptoms. Change in cosmetic appearance bleeding time-out for time off school in [place] or [place]. Change in taste change in swallow, damage to any structure of the clavicle by myself, damage to structure induction remains of anesthesia including vocal cord paralysis. (2) Recurrent sinusitis: Code(s): J32.9 - Chronic sinusitis, unspecified Status: Acute (3) Nasal septal deviation: Code(s): J34.2 - Deviated nasal septum Status: Acute
[2025-04-20] VITALS (8 sets, daily range): BP systolic 128–154; BP diastolic 66–88; PULSE 89–117; RESP 14–24; TEMP 36.2–36.4; O2SAT 95–100; BMI 46.8
--- OUTSIDE RECORDS SUMMARY | 2025-04-20 00:34 | XMS_ITS | Patient Health Record ---
Author Organization [facility] Address [address] [place] [address] RADHA Camacho [address] Care Team Providers Care Parent Educator Name Role Phone TERRELL IGLESIAS Primary Care Provider Stas Grace Unavailable [phone] TIM GARCIA CHARLES Unavailable Unavailable ALLERGIES No [...] confirmed Pain of right shoulder region (finding) (8094602855) Problem Spondylosis without myelopathy or radiculopathy, lumbar region (M47.816) Active confirmed Lumbosacral spondylosis without myelopathy (45792576) Problem Intervertebral disc disorders with radiculopathy, 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) Active confirmed Thoracic radiculopathy (35481211) Problem Intervertebral disc disorders with radiculopathy, lumbar region (M51.16) Active confirmed Radiculopathy d ue to lumbar intervertebral disc disorder (972114377453477) Problem Other intervertebral disc degeneration, lumbar region (M51.36) Active confirmed Degeneration of lumbar intervertebral disc (09282677) Problem Radiculopathy, cervical region (M54.12) Active confirmed Cervical radiculopathy (06220510) Problem Radiculopathy, thoracic region (M54.14) Active confirmed Thoracic radiculopathy (81526870) Problem Radiculopathy, lumbar region (M54.16) Active confirmed Lumbar radiculopathy (388848387) Problem Radiculopathy, lumbosacral region (M54.17) Active confirmed Lumbosacral radiculopathy (9257590) Problem 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) Active confirmed Spinal stenosis of thoracic region (34618677) Problem Intervertebral 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 [place] [address] [id number] BECKY WYATT Self - patient is the insured 2 [facility] [address] [address] [place] [phone] [id number] BECKY WYATT Self - patient is the insured MEDICAL (GENERAL) HISTORY Medical History History ICD Code right inguinal hernia gastroesophageal reflux disease (GERD) depression anxiety Possible back injury Surgical History Surgery Date(Month/Year) inguinal hernia repair, right 2005
--- OUTSIDE RECORDS SUMMARY | 2025-04-20 00:35 | XMS_ITS | Patient Health Record ---
Author Organization [facility] ([address]) Address [address] [place] [address] Care Team Providers Care Tugboat Engineer Name Role Phone Lottie Shirley Primary Care Provider Unavailab Surjit Quinteros Unavailable [phone] Ranjit Roger Unavailable [phone] Allergies Allergen (clinical drug ingredient) Drug/Non Drug Allergy documented on EMR Reaction Allergy Type Onset Date Status melatonin Melatonin Unknown Drug Allergy Active Results Component Value Reference Range Notes -TSH (Not yet reviewed by goldy hinojosa) Interpretation: Performing Lab:[facility], [address], [place] [id number], Phone - [phone], Director - Jose Cruz Notes/Report: TSH 0.656 0.450-4.500 uIU/mL -CBC With Differential/Plate let (Not yet reviewed by provider) Interpretation: Performing Lab:[facility], [address], [place] [id number], Phone - [phone], Director - Jose Cruz Notes/Report: WBC 8.7 [...] (Not yet reviewed by provider) Interpretation: [facility]forming [facility] [id number], Phone - [phone], Director - Jose Cruz Notes/Report: Sedimentation Rate-Westergren 5 0-15 mm/hr -Vitamin D, 1,25 Dihydroxy ( Not yet reviewed by provider) Interpretation: Performing Lab:[facility] [address] [id number], Phone - [phone], Director - Cruz Notes/Report: Calcitriol(1,25 di-OH Vit D) 49.5 24.8-81.5 pg /mL -Vitamin D, 25-Hydroxy (Not yet reviewed by provider) Interpretation: Performing Lab:[facility] [address] [id number], Phone - [phone], Director - Jose Cruz Notes/Report: Vitamin D, 25-Hydroxy 17.2 30.0-100.0 ng/mL Vitamin D deficiency has been defined by the [place] of [employer] and an Endocrine Society practice guideline as a level of serum 25-OH vitamin D less than 20 ng/mL (1,2). The Endocrine Society went on to further define vitamin D insufficiency as a level between 21 and 29 ng/mL (2). 1. IOM ([place] of [employer]). 2010. Dietary reference intakes for calcium and D. [place]: The National Academies Press. 2. Josie MF, Jann NC, Shanel KUMARI, et al. Evaluation, treatment, and prevention of vitamin D deficiency: an Endocrine Society clinical practice guideline. JCEM. 2010; 96(7):1911-30. -BROOKE w/Reflex (Not yet revie wed by provider) Interpretation: Performing Lab:[facility] [address] [id number], Phone - [phone], Director - Jose Cruz Notes/Report: BROOKE Direct Negative Negative Comp. Metabolic Panel (13) ( Not yet reviewed by provider) Interpretation: Performing Lab:[facility], [address] [place] [id number], Phone - [phone], Director - Jose Cruz Notes/Report: Glucose 116 [...] Status Risk Notes Problem Chronic allergic conjunctivitis (40823370) Other chronic allergic conjunctivitis (H10.45) Active confirmed Problem Essential hypertension (91127422) Essential (primary) hypertension (I10) Active confirmed Problem Allergic rhinitis caused by pollen (disorder) (01804230) Allergic rhinitis due to pollen (J30.1) Active confirmed Problem Allergic rhinitis (46225727) Other allergic rhinitis (J30.89) Active confirmed Problem Chronic rhinitis (62740561) Chronic rhinitis (J31.0) Active confirmed Problem Uncomplicated mild persistent asthma (310223971) Mild persistent asthma, uncomplicated (J45.30) Active confirmed Problem Uncomplicated moderate persistent asthma (027581884) Moderate persistent asthma, uncomplicated (J45.40) Active confirmed Problem Uncomplicated severe persistent asthma (840858485) Severe persistent asthma, uncomplicated (J45.50) Active confirmed Problem Malaise (680361357) Other malaise (R53.81) Active confirmed Problem Chronic fatigue syndrome (disorder) (11165828) Chronic fatigue, unspecified (R53.82) Active confirmed Problem Fatigue (41758316) Other fatigue (R53.83) Active confirmed Problem Abnormal weight gain (818689373) Abnormal weight gain (R63.5) Active confirmed Problem Allergic rhinitis caused by animal hair and dander (373856908283488) Allergic rhinitis due to animal (cat) (dog) hair and dander (J30.81) Active confirmed Vital Signs Blood pressure diastolic 82 mm Hg 03/17/2025 Oximetry 98 % 03/17/2025 Height 67 in 03/17/2025 Blood pressure systolic 148 mm Hg 03/17/2025 Weight 302.9 lbs 03/17/2025 BMI 47.44 kg/m2 03/17/2025 Encounters Encounter Location Date Provider Diagnosis [facility] ([address]) [address] [place] [address] 03/17/2025 Roger Church Chronic fatigue, unspecified R53.82 ; Abnormal weight gain R63.5 ; Other fatigue R53.83 and Other malaise R53.81 [facility] [address] [facility] [address] [place] [address] 01/20/2025 Surjit Arias Rash and other nonspecific skin eruption R21 ; Essential (primary) hypertension I10 and Other allergic rhinitis J30.89 [facility] [address] [place] [id number] 03/10/2025 Surjit Arias Rash and other nonspecific skin eruption R21 ; Essential (primary) hypertension I10 and Other allergic rhinitis J30.89 [facility] [address] [place] [id number] 03/25/2025 Surjit Arias Assessments Encounter Date Diagnosis (ICD Code) Assessment Notes Treatment Notes Treatment Clinical Notes Section Notes 03/10/2025 Rash and other nonspecific skin eruption [...] and 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 He will follow-up as needed 03/10/2025 Essential (primary) hypertension (ICD-10 - I10) 01/20/2025 Rash and other nonspecific skin eruption (ICD-10 - R21) Rash clearly occurs after being exposed to his environment at work. Does appear to improve when he is not in the office. 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 01/20/2025 Essential (primary) hypertension (ICD-10 - I10) 03/17/2025 Chronic fatigue, unspecified (ICD-10 - R53.82) 01/20/2025 Other allergic rhinitis (ICD-10 - J30.89) [...] (13) 01/20/2025 Next Appt Details Provider Name:Roger Church , 04/22/2025 04:15:00 PM, [address], [place], [address], Provider Name:Roger Church , 04/22/2025 04:30:00 PM, [address], [place], [address], Insurance Providers Payer Name Payer Address Payer Phone Subscriber Number Group Number Insured Name Patient Relationship to Insured Coverage Start Date Coverage End Date [employer] [address] [address] [place], [place] [id number] NikkiBakari weinstein Self - patient is the insured Medical (General) History Medical History History ICD Code high blood pressure low testerone Surgical History Surgery Date(Month/Year) Hernia repair Hospitalization History Reason Date(Month/Year) See Above
--- OUTSIDE RECORDS SUMMARY | 2025-04-20 00:35 | XMS_ITS | Continuity of Care Document ---
Author Organization [facility] Address [address] [facility]. [address] [place] [address] Insurance Providers Payer Plan Claims Address Claims Phone Policy Number Group Number Relation Employer Guarantor Name Guarantor Guarantor Address Guarantor Phone [employer] Enterpri se tel:[phone] [id number] Self Prabhu Rochaus [address] [place] [address] [id number] Self Prabhu Rochaus [address] [place] [address] Comme rcial 1 Enterpri se [id number] Self Prabhu Rochaus [address] [place] [address] Problems Condition ICD9 code ICD10 code SNOMED code Start Date End Date S tatus Encounter for screening for other metabolic disorders Z13.228 Results No Results Allergies, adverse reactions, alerts No known allergies and adverse reactions Medications No administered medications reported Vital Signs No vital signs reported Social History No smoking Hx information available
[2025-04-20] MEDS: ACETAMINOPHEN 500 MG TABLET 1000 MG PO (07:13)
--- NOTE | 2025-04-20 07:19 | WPDHPUPDATE1 ---
History and Physical Update Update Date/Time: 04/20/25 07:19 History and Physical has been reviewed, including an updated exam of the patient. There are NO changes in the patient's condition. Risks, benefits, and alternatives have been discussed and questions answered. Patient agrees to proceed with procedure.
[2025-04-20] MEDS: LIDO 1%/EPINEPHRINE 1:100,000 50 ML VIAL 10 ML INFILTRATE (08:52)
[2025-04-20] MEDS: ceFAZolin 3 GM/D5W 100 ML 100 ML IVPB (08:52)
[2025-04-20] MEDS: OXYMETAZOLINE HCL 0.05% NAS 15 ML BTL (*BKC) 4 SPRAY NASAL (08:52)
[2025-04-20] MEDS: MUPIROCIN 2% OINT 22 GM TUBE 1 APPLIC EACH NARE (10:49)
[2025-04-20] MEDS: LACTATED RINGERS 1,000 ML 30 ML IV CONT ×2 (11:21)
--- NOTE | 2025-04-20 11:40 | W.PM.PROC2 ---
Procedure Note - Detailed Date of Procedure 04/20/25 Pre-op Diagnosis Chr Sinusitits,Allergic Rhinitis Post-op Diagnosis Same Procedure Performed 1. Endoscopic assisted septoplasty 2. Left-sided image guided endoscopic maxillary antrostomy 3. Left-sided image guided endoscopic total ethmoidectomy 4. Left-sided image guided endoscopic frontal sinusotomy 5. Right-sided image guided maxillary endoscopic antrostomy with tissue removed 6. Right-sided image guided endoscopic anterior ethmoidectomy Surgeon Kyle Quintanilla MD Anesthesia General Indications See above Findings Polypoid disease tissue in both sinuses the right was almost completely fill had to remove all the polyps and tissue. Inflamed mucosa throughout. Acceptable bleeding. Right septal deviation necessitating septoplasty for access. Patient also reported trouble breathing this morning. At it. Description of Procedure Patient identified consent verified preop holding ear. Patient brought operating. Time-out performed. General anesthesia induced endotracheal tube secured airway. Patient prepped draped position procedure confirmed 2nd time-out performed. Image guidance initiated confirmed. Accuracy perfect. Patient prepped draped position. Total 15 cc 1% lidocaine with 1 100,000 parts epinephrine checked in the bilateral nasal septum. [place] incision made left-sided this was done under 0 degree endoscopic guidance. Frederic incision made with 15 blade. Left nasal septal flap elevated 7 Romanian suction. Osteotome utilized crossover. Right nasal septal flap elevated 7 Romanian suction. Deviated septum removed Katlyn forceps Clark [place] forceps and osteotome. Septum irrigated closed anteriorly 3 interrupted 5 0 fast gut sutures. The bilateral maxillary antrostomies were performed under image guidance with straight through cut double ball tip probe back biter and image guided microdebrider. Great care was taken to ensure the natural os communicated accessory and surgical losses. Right side had to be debrided tissue was removed with Katlyn as well as microdebrider rad 60 microdebrider. Anterior ethmoidectomy bilaterally performed with image guided microdebrider Kerrison and straight through cut. Left sided endoscopic posterior ethmoidectomy was performed with Kerrison image guided microdebrider. And straight through cut. Left frontal sinusotomy performed 70 degree scope image guided frontal sinus suction curette [facility] frontal sinus seeker. Great care was taken to avoid injury the orbit. I confirmed that the orbit was not intra by pushing on the eyeball itself. As well as with image guidance the entire orbit was probed and intact and present. Frontal sinus was opened with combination of Hosemann draft instruments Farrahra and the seeker. Patient tolerated the procedure well bilateral nasal passages irrigated copious amounts sterile normal saline. Warm of course to stop bleeding. Nova pack placed bilaterally. Sun splints placed bilaterally ensured to be lateral to turbinate. These were sutured anteriorly the mattress nylon suture. Patient tolerated the procedure well no complications. Care the patient was given Anesthesiology. Total blood loss about 50 cc. I performed all dictated portions of the procedure. Patient taken to PACU. Estimated Blood Loss 50 Packing Yes (novcarlozk) Pathology Yes Complications No immediate complications Condition Stable Disposition PACU [facility] Billing Surgery - Charge Forward: Surgery Billing
[2025-04-20] MEDS: oxyCODONE HCL (*CRX) 5 MG TAB IR PO (12:30)
--- NOTE | 2025-04-21 13:53 | P.PNAN_ITS ---
Anes - Initial Pre Proc Eval Procedure: Operation Date: 04/20/25 08:30 Proposed Procedures p Image Guided Endoscopic Right-Sided Maxillary Antrostomy, Right-Sided Anterior Ethmoidectomy, Left-Sided Maxillary Antrostomy, Left-Sided Total Ethmoidectomy, Left Sided Frontal Sinusotomy - Kyle Quintanilla MD s Possible Endoscopic Septoplasty - Kyle Quintanilla MD Date/Time: 04/21/25 13:53 Surgeon: Kyle Quintanilla MD Pre Op Diagnosis: Chr Sinusitits,Allergic Rhinitis Patient Data Age: 35 Gender: M Height: 1.69 m Weight: 133.7 kg Last Vital Signs Temp 97.6 F 04/20/25 11:21 Pulse 100 04/20/25 13:00 Resp 20 04/20/25 13:00 BP 143/75 H 04/20/25 13:00 Pulse Ox 95 04/20/25 12:05 O2 Del Method Room Air 04/20/25 13:00 O2 Flow Rate 10 04/20/25 11:35 Allergies Allergy/AdvReac Type Severity Reaction Status Date / Time melatonin Allergy Intermediate Muscle Verified 04/16/25 14:23 Spasms dust mites Allergy Mild Unknown Uncoded 04/16/25 14:23 Home Medications ?Medication ?Instructions ?Recorded ?Confirmed ?Type testosterone cypionate 100 mg/mL 50 mg IM .Bi Monthly 01/21/25 04/08/25 History intramuscular oil cyanocobalamin (vitamin B-12) 1,000 mcg IM MONTHLY 04/08/25 History 1,000 mcg/mL injection solution fluticasone propionate 50 2 spray intranasal BID #16 g crystal 02/03/25 04/08/25 Rx mcg/actuation nasal spray,suspension (Flonase Allergy Relief) ketoconazole 2 % shampoo 1 applic topical .bi weekly 02/03/25 04/08/25 History syringe with needle 3 mL 25 gauge #1 ea 02/03/2504/08 History x 1 (BD Luer-David Syringe) tadalafil 5 mg tablet (Cialis) 2.5 mg PO DAILY bladder spasms 04/02/25 04/08/25 History hydrocodone 5 mg-acetaminophen 325 2 tablet PO Q4-6H P RN pain 04/08/25 04/08/25 History mg tablet losartan 25 mg tablet 25 mg PO DAILY 04/08/2503/23 History doxycycline hyclate 100 mg capsule 100 mg PO BID #14 c aps 04/14/25 Rx mupirocin 2 % topical ointment 1 applic topical BID #2 2 grams 04/14/25 Rx (Centany) doxycycline hyclate 100 mg capsule 100 mg PO BID #6 ca ps 04/20/25 Rx tramadol 50 mg tablet 50 mg PO Q8H PRN pain #14 ta bs 04/20/25 Rx Patient hx anesthesia problems: none Family hx anesthesia problems: none Results Review: All pre-operative results and documents have been reviewed as part of the pre- operative evaluation. [facility] Past Medical History Medical History (Updated 04/20/25 @ 11:38 by Kyle Quintanilla MD) Migraine GERD (gastroesophageal reflux disease) Asthma Anxiety Allergies Prediabetes Hypertension IBS (irritable bowel syndrome) Arthritis Back pain Obese Surgical History Surgical History (Updated 04/16/25 @ 14:27 by Kamille Lovett MA) Right groin mass S/P EXC RT GROIN CYST 04/02 DR. ROSINA KEVIN H/O hernia repair Family History Family History Grandparent Breast cancer Alcoholism Depression Diabetes mellitus Heart problem Hypertension Cerebrovascular accident Father Alcoholism Asthma Depression Diabetes mellitus Heart problem Hypertension Sibling Alcoholism Asthma Depression Hypertension Mother Depression Hypertension Other Carcinoma of colon Dementia Social History Social History Smoking status: Never smoker Alcohol intake: current Alcohol use details: less than one a week, social drinker. Substance use: current Substance use type: marijuana Other substance usage details: rare use 3x per year Last use: 11/20/24 Do You Feel Safe in your Home?: Yes Lack of Transportation: No Lack of Food: Never True Current Housing: I Have Housing Concerned About Future Housing: No Difficulty Paying Gas/Electric Bills: No Difficulty Paying for Meds: YES Currently Unemployed: No Education: Master's Degree or Higher Difficulty w/ Childcare or Family Care: No Living arrangements: with family Gender identity (if verbalized by the patient): Male Spiritual care concerns: No Anes - Eval Final PreProcedure Day of Procedure 04/21/25 13:53 Patient weight: obese Lungs: normal air movement Airway: Mallampati scale class II Neurological: alert and oriented Last oral intake: >/= 8 hours ASA classification: III Emergent: no Anesthetic plan: proceed Anesthesia type and monitoring: general GIVS and standard monitoring Results Review: All pre-operative results and documents have been reviewed as part of the pre- operative evaluation. Informed Consent: The patient's anesthetic plan and its attendant risks and benefits were discussed with the patient/family/POA. Questions were solicited and answers provided to the satisfaction of the patient/family/POA.
== END 2025-04-20 13:06 | disposition home or self-care (01) ==
PROVIDERS: PCP Physician Assistant; Visit Provider Otolaryngology
PROC: (CPT 30520; principal; 2025-04-20 08:30)
PROC: (CPT 30520; 2025-04-20 08:30)
DX: J32.9 Chronic sinusitis, unspecified (principal); J33.8 Other polyp of sinus; J34.2 Deviated nasal septum; I10 Essential (primary) hypertension; G89.18 Other acute postprocedural pain; K21.9 Gastro-esophageal reflux disease without esophagitis; R73.03 Prediabetes; K58.9 Irritable bowel syndrome, unspecified; J45.909 Unspecified asthma, uncomplicated; F41.9 Anxiety disorder, unspecified; M19.90 Unspecified osteoarthritis, unspecified site; F12.90 Cannabis use, unspecified, uncomplicated; E66.9 Obesity, unspecified; Z68.42 Body mass index [BMI] 45.0-49.9, adult; Z79.891 Long term (current) use of opiate analgesic; Z98.890 Other specified postprocedural states; Z80.3 Family history of malignant neoplasm of breast; Z80.0 Family history of malignant neoplasm of digestive organs; Z82.49 Family history of ischemic heart disease and other diseases of the circulatory system
CPT/HCPCS: 30520; 31267; 31256; 31253; 31254; 61782; A9270; J0690; J1100; J1171; J2003; J2004; J2250; J2405; J2704; J3010; J7120